=== PATIENT | female | born 2000 | race Caucasian/White ===

== ENCOUNTER 2022-09-28 14:26 | Emergency (ER) | payer MEDICAID, SELFPAY ==
[2022-09-28 14:34] VITALS: BP 147/101; PULSE 99; RESP 16; TEMP 36.6; O2SAT 98
--- NOTE | 2022-09-28 15:17 | CTR_ITS ---
PROCEDURE INFORMATION: Exam: CT Abdomen And Pelvis With Contrast Exam date and time: 09/28/2022 4:56 PM Age: 22 years old Clinical indication: Abdominal pain; Additional info: Abdominal pain, hematemesis and hematochezia TECHNIQUE: Imaging protocol: Computed tomography of the abdomen and pelvis with contrast. Radiation optimization: All CT scans at this facility use at least one of these dose optimization techniques: automated exposure control; mA and/or kV adjustment per patient size (includes targeted exams where dose is matched to clinical indication); or iterative reconstruction. Contrast material: OMNI 350; Contrast volume: 100 ml; Contrast route: INTRAVENOUS (IV); COMPARISON: CR XR acute abdomen series [id number] 05/29/2018 11:03 PM RADIATION DOSE METRICS: Total DLP (mGy-cm): 1079.33 FINDINGS: Liver: Normal. No mass. A few scattered calcifications seen in the right lobe. Gallbladder and bile ducts: Normal. No calcified stones. No ductal dilation. Pancreas: Normal. No ductal dilation. Spleen: Normal. No splenomegaly. Adrenal glands: Normal. No mass. Kidneys and ureters: Normal. No hydronephrosis. Stomach and bowel: Unremarkable. No obstruction. No mucosal thickening. New lines the descending colon and sigmoid colon are small in caliber. Appendix: No evidence of appendicitis. Intraperitoneal space: Unremarkable. No free air. No significant fluid collection. Vasculature: Unremarkable. No abdominal aortic aneurysm. Lymph nodes: Unremarkable. No enlarged lymph nodes. Urinary bladder: Unremarkable as visualized. Reproductive: Unremarkable as visualized. Bones/joints: Unremarkable. No acute fracture. Soft tissues: Unremarkable. CT/CT abdomen pelvis w con* [id number] IMPRESSION: 1. The descending and sigmoid colon are small in caliber. 2. Otherwise No acute abnormalities.
--- NOTE | 2022-09-28 15:17 | XRR_ITS ---
PROCEDURE INFORMATION: Exam: XR Chest Exam date and time: 09/28/2022 3:25 PM Age: 22 years old Clinical indication: Other: Abd; Additional info: Abdominal pain TECHNIQUE: Imaging protocol: Radiologic exam of the chest. Views: 1 view. COMPARISON: CR XR acute abdomen series [id number] 05/29/2018 11:03 PM FINDINGS: Lungs: Unremarkable. No consolidation. Pleural spaces: Unremarkable. No pleural effusion. No pneumothorax. Heart/Mediastinum: Unremarkable. No cardiomegaly. Bones/joints: Unremarkable. XR/XR chest 1V portable [id number] IMPRESSION: No acute findings.
[2022-09-28] MEDS: sodium chloride 0.9% 1,000 ML 999 ML IV (16:01)
[2022-09-28 16:02] LABS: Basophils # 0.1 10^3/uL (0.0-0.1); Basophils % 0.6 %; Eosinophils # 0.1 10^3/uL (0.0-0.8); Eosinophils % 0.6 %; Hematocrit 45.1 % (37.0-47.0); Hemoglobin 15.5 g/dL (11.5-15.3); Lymphocytes # 2.8 10^3/uL (0.8-4.8); Lymphocytes % 19.6 %; Mean Corpuscular HGB Conc 34.4 g/dL (30.0-36.0); Mean Corpuscular Hemoglobin 29.5 pg (28.0-34.0); Mean Corpuscular Volume 85.9 fl (81-99); Mean Platelet Volume 10.2 fL (7.4-10.4); Monocytes % 6.8 %; Neutrophils # 10.31 10^3/uL (1.8-7.7); Neutrophils % 72.1 %; Nucleated Red Blood Cells % 0 %; Platelet Count 409 10^3/cmm (130-400); Red Blood Count 5.25 10^6/uL (4.1-5.3); Red Cell Distribution Width 12.3 % (12.1-15.1); White Blood Count 14.3 10^3/uL (4.0-10.0)
[2022-09-28] MEDS: metoclopramide 5 mg/mL SDV 2 mL IVP (16:02)
[2022-09-28 16:06] VITALS: BP 128/84; PULSE 75; O2SAT 97
[2022-09-28 16:23] LABS: Alanine Aminotransferase 31 U/L (0-33); Albumin Level 4.9 g/dL (3.5-5.2); Alkaline Phosphatase 74 U/L (35-105); Blood Urea Nitrogen 9 mg/dL (6-20); Calcium 9.6 mg/dL (8.5-10.5); Carbon Dioxide 23 mmol/L (22-29); Chloride 101 mmol/L (98-107); Globulin 3.2 g/dL (1.3-4.6); Glomerular Filtration Rate 152.9 mL/min (90-130); Glucose 88 mg/dL (65-115); Lipase 11 U/L (13-60); Magnesium 1.9 mg/dL (1.7-2.3); Osmolality Calculated 280 mOsm/kg (285-295); Sodium 136 mmol/L (136-145); Total Bilirubin 0.8 mg/dL (0.15-1.2); Total Protein 8.1 g/dL (6.6-8.7)
[2022-09-28 16:26] LABS: Alcohol Level < 10 mg/dL (0-10); Anion Gap 16.1 (5-19); Aspartate Amino Transferase 20 U/L (0-32); Potassium 4.1 mmol/L (3.5-5.1)
[2022-09-28 16:28] LABS: Ketone (Acetest) Serum Negative (Negative)
[2022-09-28 16:30] VITALS: BP 121/77; PULSE 75; O2SAT 96
[2022-09-28 16:36] LABS: Amphetamines Screen Urine Negative (Negative); Barbiturates Screen Urine Negative (Negative); Benzodiazepines Screen Urine Negative (Negative); Cocaine Screen Urine Negative (Negative); Opiate Screen Urine Negative (Negative); PCP Screen Urine Negative (Negative); THC Screen Urine Positive (Negative)
[2022-09-28 16:37] LABS: Lactate (Lactic Acid level) 0.8 mmol/L (0.5-2.2)
[2022-09-28 16:42] LABS: Add Urine Microscopic? YES; Bilirubin Urine Neg (Negative); Blood Urine 2+ (Negative); Glucose Urine UA Norm (Normal); Ketones Urine 1+ (Negative); Leukocyte Esterase Urine Trace (Negative); Nitrate Urine Negative (Negative); Protein Urine 1+ (Negative); Urine Appearance Turbid (CLEAR); Urine Color Yellow (Yellow); Urobilinogen Urine Norm (Negative); WBC Urine 0-4 /hpf (0-5); pH Urine 5 (5-7)
[2022-09-28 16:43] LABS: Add Urine Culture? No; Amorphous Sediment Urine 4+ /hpf; Bacteria Urine 1+ /hpf
[2022-09-28 17:00] VITALS: PULSE 78; O2SAT 96
[2022-09-28] MEDS: iohexol 350 mg/mL 500 mL Btl (per mL) IV (17:07)
--- NOTE | 2022-09-28 17:29 | ED_ITS ---
HPI - Abdominal Pain General: Chief Complaint: Abdominal Pain Stated Complaint: passing blood Time Seen by Provider: 09/28/22 15:05 History of Present Illness: Patient is a 22-year-old female that presents to the emergency department with complaints of abdominal pain, nausea vomiting diarrhea. Patient reports bloody stools as well as bloody vomitus. Symptoms began about 3:00 this morning when she came home after being out drinking. Patient states that she had 3 shots and 1 wine cooler. She became extremely inebriated. She does not recall going home. She reports that she was with her friends the entire time. Significant other reports that she had a syncopal episode or seizure activity. Patient does not have a seizure history. Associated Symptoms: Denies bloating, chills, constipation, GI cramping, diarrhea, dysuria, fever(s), hematochezia, hematuria, nausea and vomiting Related Data: Date of Last Menstrual Period: 07/17/22 Review of Systems General: Reports: 10 or more systems reviewed and unremarkable except in HPI and below Const: Denies: fever(s), chills, change in appetite, change in weight, fatigue or malaise Eyes: Denies: change in vision, eye discomfort, eye discharge or eye redness ENMT: Denies: throat pain, enlarged tonsils, odynophagia, hoarseness, ear or mastoid pain, ear discharge, change in hearing, tinnitus, nasal discharge, nasal congestion, post nasal drip or sinus pain Card: Denies: chest pain, palpitations, irregular heart rhythm, edema, dyspnea on exertion, orthopnea or leg pain with exertion Resp: Denies: dyspnea, productive cough, non-productive cough, wheezing, stridor or chest congestion GI: Denies: abdominal pain, nausea, vomiting, dysphagia, diarrhea, constipation, bloating, GI cramping or hematochezia : Denies: flank pain, difficulty voiding, dysuria, urinary frequency, urinary urgency, urinary hesitancy, oliguria or hematuria Musc: Denies: neck pain, back pain, extremity pain, joint pain, joint swelling, joint redness, joint warmth or muscle weakness Skin/Breast: Denies: rash, pruritus, erythema, photosensitivity or new lesions Neuro: Denies: headache(s), numbness in extremities, weakness in extremities, sensory changes, lack of coordination, difficulty walking, frequent falls, dizziness, confusion, Slurred speech present, difficulty communicating thoughts, seizure-like activity or involuntary movements Endo: Denies: polyuria, polydipsia or tired all the time Tito/Lymph: Denies: easy bruising or easy bleeding PFSH ED PFSH: Medical History (Updated 07/02/22 @ 10:47 by Codie Miranda MD) MDD (major depressive disorder) Psychiatric care PTSD (post-traumatic stress disorder) Female Reproductive History: Date of last menstrual period: 07/17/22 Physical Exam Const: COMMON NORMALS: no acute distress, average body habitus, patient oriented x3, no limitations, healthy appearing, alert and well nourished GENERAL APPEARANCE: cooperative, comfortable and well developed; not in distress and not anxious ORIENTATION/CONSCIOUSNESS: Yes awake, Yes oriented to person, Yes oriented to place and Yes oriented to time HENMT: COMMON NORMALS: normocephalic, atraumatic, hearing grossly normal bilaterally, external ears normal, EAC's normal, TM's normal bilaterally, Normal external nose present and Normal nasal mucous membranes and turbinates present HEAD & SCALP: normal to inspection, normocephalic and atraumatic FACE & SINUS: normal facial exam and face symmetric NOSE: Normal external nose present, Normal nares present and Normal nasal mucous membranes and turbinates present GENERAL EAR: hearing not grossly impaired EXTERNAL EAR: Yes external ears normal and Yes no periauricular adenopathy EXTERNAL AUDITORY CANAL: EAC's normal TYMPANIC MEMBRANE: TM's normal bilaterally MOUTH: Normal oral and palatal mucosa present, lip normal, tongue normal and Normal salivary glands and ducts present THROAT: posterior oropharynx normal, tonsils normal and uvula midline Eye: COMMON NORMALS: Equal, round and reactive pupils present, EOMs intact bilaterally, conjunctivae normal, no scleral icterus and no papilledema GENERAL EYE: appearance normal, both eyes and all related structures ALIGNMENT: Yes alignment normal PERIORBITAL: periorbital findings normal EYELID: eyelids normal CONJUNCTIVA: Yes conjunctivae normal PUPIL: Yes Equal, round and reactive pupils present DIRECT OPHTHALMOSCOPY: Yes no papilledema Neck/C-Spine: COMMON NORMALS: full ROM, supple, no meningeal signs and no JVD GENERAL: Yes normal visual inspection CERVICAL SPINE: Yes cervical ROM normal Lymph: LYMPHATIC: no lymphadenopathy noted Chest: COMMONS NORMALS: normal inspection of the chest Breast/axilla inspection: Yes no chest deformity, asymmetry, normal contours, no nodules, masses, tenderness Resp: COMMON NORMALS: normal respiratory effort, No retractions, No use of accessory muscles and clear to auscultation bilaterally EFFORT & INSPECTION: Yes able to speak in complete sentences, Yes symmetric chest movement, No abn ormal respiratory pattern, No tachypneic and No respiratory distress AUSCULTATION: clear to auscultation bilaterally Cardio: COMMON NORMALS: no JVD, regular rate, regular rhythm and Peripheral pulses 2+ throughout RATE: regular rate RHYTHM: regular rhythm PERIPHERAL PULSES: Peripheral pulses 2+ throughout GI: COMMON NORMALS: Normal to inspection, nondistended, normoactive bowel emeli nds present and Soft to palpation INSPECTION: Yes normal to inspection AUSCULTATION: Yes normoactive bowel sounds PALPATION: Yes Soft to palpation and Yes Tenderness to palpation present (GI) Details: RLQ : COMMON NORMALS: Yes no CVA tenderness BLADDER/KIDNEY EXAM: Yes no CVA tenderness Back/Pelvis: COMMON NORMALS: no CVA tenderness, thoracic and lumbar spine normal to inspection, no thoracic nor lumbar tenderness, thoraco-lumbar ROM normal and straight leg raise negative bilaterally GENERAL BACK: No ecchymosis THORACIC SPINE/UPPER BACK: Yes normal to inspection LUMBAR SPINE/LOWER BACK: Yes normal to inspection and Yes straight leg raise negative bilaterally Extremity: COMMON NORMALS: normal to inspection, full ROM and capillary refill normal GENERAL: Yes normal exam except as noted Neuro: COMMON NORMALS: patient oriented x3 SENSORIUM/ORIENTATION: Yes alert, Yes oriented to person, Yes oriented to place and Yes oriented to time MENINGEAL SIGNS: Yes no meningeal signs Psych: COMMON NORMALS: mental status grossly normal, Normal thought process present, cooperative, normal affect, speech normal and activity/motor behavior normal SPEECH: Yes normal speech THOUGHT PROCESS: Normal thought process present Skin: COMMON NORMALS: no rashes or lesions noted, no wounds, turgor normal, no jaundice, no petechiae and no mottling GENERAL SKIN EXAM: no rashes or lesions noted and turgor normal Course Vital Signs: Vital signs: Vital Signs Temperature 97.9 F 09/28/22 14:34 Pulse Rate 99 09/28/22 14:34 Respiratory Rate 16 09/28/22 14:34 Blood Pressure 147/101 09/28/22 14:34 Pulse Oximetry 98 09/28/22 14:34 MDM - Abdominal Pain Medical Decision Making Patient was evaluated in the emergency department for complaints of abdominal pain, nausea vomiting and diarrhea. Patient reports multiple episodes of vomiting and with some of these episodes it was bloody in nature. Patient also reports a episode of bloody stools. Differential diagnoses include colitis, Crohn's, gastritis, GI bleed Patient underwent laboratory studies to include urinalysis, CBC, CMP, urine , lipase and alcohol. She also underwent chest x-ray which was unremarkable. CT abdomen pelvis with contrast was obtained and reveals At this time imaging and laboratory studies are still pending. Mark Brandon NP will assume care. I have updated him on patient's case. Lab Data 09/28/22 15:50 09/28/22 15:50 Labs/Radiology: Radiology Impressions Chest X-Ray 09/28/22 15:17 IMPRESSION: No acute findings. Laboratory Results WBC 14.3 10^3/uL (4.0-10.0) H 09/28/22 15:50 RBC 5.25 10^6/uL (4.1-5.3) 09/28/22 15:50 Hgb 15.5 g/dL (11.5-15.3) H 09/28/22 15:50 Hct 45.1 % (37.0-47.0) 09/28/22 15:50 MCV 85.9 fl (81-99) 09/28/22 15:50 MCH 29.5 pg (28.0-34.0) 09/28/22 15:50 MCHC 34.4 g/dL (30.0-36.0) 09/28/22 15:50 RDW 12.3 % (12.1-15.1) 09/28/22 15:50 Plt Count 409 10^3/cmm (130-400) H 09/28/22 15:50 MPV 10.2 fL (7.4-10.4) 09/28/22 15:50 Neut % (Auto) 72.1 % 09/28/22 15:50 Lymph % (Auto) 19.6 % 09/28/22 15:50 Latimer % (Auto) 6.8 % 09/28/22 15:50 Eos % (Auto) 0.6 % 09/28/22 15:50 Baso % (Auto) 0.6 % 09/28/22 15:50 Neut # (Auto) 10.31 10^3/uL (1.8-7.7) H 09/28/22 15:50 Lymph # (Auto) 2.8 10^3/uL (0.8-4.8) 09/28/22 15:50 Latimer # (Auto) 1.0 10^3/uL (0.2-0.9) H 09/28/22 15:50 Eos # (Auto) 0.1 10^3/uL (0.0-0.8) 09/28/22 15:50 Baso # (Auto) 0.1 10^3/uL (0.0-0.1) 09/28/22 15:50 Nucleated RBC % (auto) 0 % 09/28/22 15:50 Nucleated RBCs # 0.0 /100WBC 09/28/22 15:50 Sodium 136 mmol/L (136-145) 09/28/22 15:50 Potassium 4.1 mmol/L (3.5-5.1) 09/28/22 15:50 Chloride 101 mmol/L (98-107) 09/28/22 15:50 Carbon Dioxide 23 mmol/L (22-29) 09/28/22 15:50 Anion Gap 16.1 (5-19) 09/28/22 15:50 BUN 9 mg/dL (6-20) 09/28/22 15:50 Creatinine 0.5 mg/dL (0.5-0.9) 09/28/22 15:50 GFR Calculation 152.9 mL/min (90-130) H 09/28/22 15:50 Glucose 88 mg/dL (65-115) 09/28/22 15:50 Calculated Osmolality 280 mOsm/kg (285-295) L 09/28/22 15:50 Lactate 0.8 mmol/L (0.5-2.2) 09/28/22 15:50 Calcium 9.6 mg/dL (8.5-10.5) 09/28/22 15:50 Magnesium 1.9 mg/dL (1.7-2.3) 09/28/22 15:50 Total Bilirubin 0.8 mg/dL (0.15-1.2) 09/28/22 15:50 AST 20 U/L (0-32) 09/28/22 15:50 ALT 31 U/L (0-33) 09/28/22 15:50 Alkaline Phosphatase 74 U/L (35-105) 09/28/22 15:50 Total Protein 8.1 g/dL (6.6-8.7) 09/28/22 15:50 Albumin 4.9 g/dL (3.5-5.2) 09/28/22 15:50 Globulin 3.2 g/dL (1.3-4.6) 09/28/22 15:50 Lipase 11 U/L (13-60) L 09/28/22 15:50 Urine Color Yellow (Yellow) 09/28/22 16:00 Urine Appearance Turbid (CLEAR) A 09/28/22 16:00 Urine pH 5 (5-7) 09/28/22 16:00 Ur Specific [place] 1.030 (1.005-1.030) 09/28/22 16:00 Urine Protein 1+ (Negative) H 09/28/22 16:00 Urine Glucose (UA) Norm (Normal) 09/28/22 16:00 Urine Ketones 1+ (Negative) H 09/28/22 16:00 Urine Blood 2+ (Negative) H 09/28/22 16:00 Urine Nitrate Negative (Negative) 09/28/22 16:00 Urine Bilirubin Neg (Negative) 09/28/22 16:00 Urine Urobilinogen Norm mg/dL (Negative) 09/28/22 16:00 Ur Leukocyte Esterase Trace (Negative) H 09/28/22 16:00 Urine RBC 5-10 /hpf (0-2) H 09/28/22 16:00 Urine WBC 0-4 /hpf (0-5) H 09/28/22 16:00 Ur Squamous Epith Cells 10-15 /hpf (0-5) H 09/28/22 16:00 Amorphous Sediment 4+ /hpf 09/28/22 16:00 Urine Bacteria 1+ /hpf (NONE) H 09/28/22 16:00 Urine HCG, Qual Negative (Negative) 09/28/22 16:00 Urine Opiates Screen Negative ng/mL (Negative) 09/28/22 16:00 Ur Barbiturates Screen Negative ng/mL (Negative) 09/28/22 16:00 Ur Phencyclidine Scrn Negative ng/mL (Negative) 09/28/22 16:00 Ur Amphetamines Screen Negative ng/mL (Negative) 09/28/22 16:00 U Benzodiazepines Scrn Negative ng/mL (Negative) 09/28/22 16:00 Urine Cocaine Screen Negative ng/mL (Negative) 09/28/22 16:00 U Marijuana (THC) Screen Positive ng/mL (Negative) H 09/28/22 16:00 Ethyl Alcohol < 10 mg/dL (0-10) 09/28/22 15:50 Serum Ketones Negative (Negative) 09/28/22 15:50 Discharge Plan Discharge Condition: Stable Prescriptions: No Action prazosin 1 mg capsule 1 mg PO .qhs 30 Days Qty: 30 3RF hydroxyzine HCl 10 mg tablet 10 mg PO BID PRN (Reason: itching) 30 Days Qty: 60 3RF trazodone 50 mg tablet 50 mg PO .qhs 30 Days Qty: 30 3RF Coding Level of Care Code ED [employer] Dem[employer] for [employer]
[2022-09-28 17:30] VITALS: BP 145/91; PULSE 73; O2SAT 99
== END 2022-09-28 18:25 | disposition home or self-care (01) ==
PROVIDERS: Emergency Provider Nurse Practitioner
DX: R10.9 Unspecified abdominal pain (principal); R11.2 Nausea with vomiting, unspecified; R19.7 Diarrhea, unspecified
CPT/HCPCS: 71045; 74177; 80053; 80306; 80307; 81001; 81025; 82009; 83605; 83690; 83735; 85025; 96361; 96374; 99285; J2765; J7030; Q9967

== ENCOUNTER → 2022-10-24 12:20 | Outpatient (BNVA) | payer MEDICAID, SELFPAY | PROVIDERS: Visit Provider Obstetrics & Gynecology | DX: N92.6 Irregular menstruation, unspecified (principal) | CPT/HCPCS: 81025; 83036; 83525; 84443 ==

== ENCOUNTER → 2022-11-13 08:46 | Outpatient (BNVA) | payer MEDICAID, SELFPAY | PROVIDERS: Visit Provider Obstetrics & Gynecology | DX: N92.6 Irregular menstruation, unspecified (principal); N83.8 Other noninflammatory disorders of ovary, fallopian tube and broad ligament | CPT/HCPCS: 76830 ==

== ENCOUNTER → 2023-10-07 10:57 | Outpatient (BNVA) | payer SELFPAY | PROVIDERS: Visit Provider Registered Nurse Neonatal Intensive Care | DX: R05.9 Cough, unspecified (principal); J06.9 Acute upper respiratory infection, unspecified | CPT/HCPCS: 87400 ==

== ENCOUNTER → 2023-12-14 14:45 | Outpatient (BNVA) | payer MEDICAID, SELFPAY | PROVIDERS: Visit Provider Obstetrics & Gynecology | DX: Z01.419 Encounter for gynecological examination (general) (routine) without abnormal findings (principal) | CPT/HCPCS: 87624 ==

== ENCOUNTER 2024-03-04 18:03 | Emergency (ER) | payer MEDICAID, SELFPAY ==
[2024-03-04 18:05] VITALS: BP 149/97; PULSE 94; RESP 16; TEMP 37.1; O2SAT 98
--- NOTE | 2024-03-04 18:24 | ED_ITS ---
HPI - Eye Problem General: Chief complaint: Eye Problems Stated complaint: right eye pain Time Seen by Provider: 03/04/24 18:07 Source: patient Mode of arrival: ambulatory Limitations: no limitations History of Present Illness: Patient is a 23-year-old female presenting to the emergency department complaining of right eye swelling and itchiness for the past day or so. Patient believes she came in contact with poison audelia, as she denies using any new make- ups or coming into contact with anything specific, other than being outside. She is denying any visual changes or pain with extraocular movements. She does note that the rashes to her right periorbital region and right upper extremity. She has not taken anything for her symptoms at this time. She is denying any angioedema or oropharyngeal swelling, and has no complaints of respiratory difficulties. chief complaint: eye redness Onset (ago): day(s) Onset description: sudden Duration: constant and progressively worsening Eye Symptoms: redness and itching Severity: moderate Associated symptoms: Denies fever(s), headache(s), nausea, neck pain or vomiting Review of Systems General: Reports: 10 or more systems reviewed and unremarkable except in HPI and below Const: Denies: fever(s), chills or fatigue Eyes: Reports: other (Periorbital itching and swelling); Denies: change in vision, blurry vision, photophobia, eye discomfort, eye discharge or eye redness ENMT: Denies: throat pain, ear or mastoid pain or nasal discharge Card: Denies: chest pain, palpitations, swelling of feet/ankles or lightheadedness Resp: Denies: dyspnea, productive cough or wheezing GI: Denies: abdominal pain, nausea, vomiting, diarrhea or constipation : Denies: flank pain, difficulty voiding, dysuria or urinary frequency Musc: Denies: neck pain, back pain or joint pain Skin/Breast: Denies: rash Neuro: Denies: headache(s), numbness in extremities or weakness in extremities PFSH ED PFSH: Medical History Major depressive disorder, recurrent severe without psychotic features Insomnia PTSD (post-traumatic stress disorder) MDD (major depressive disorder) Psychiatric care Family History Grandmother Breast cancer Maternal Diabetes Grandfather Diabetes Denies family history of Colon cancer Ovarian cancer Heart disease Hypercholesteremia Hypertension Uterine cancer Thyroid disease Stroke Female Reproductive History: Date of last menstrual period: 01/31/24 Physical Exam Const: COMMON NORMALS: no acute distress, patient oriented x3 and no limitations GENERAL APPEARANCE: cooperative, comfortable and well developed ORIENTATION/CONSCIOUSNESS: Yes awake, Yes oriented to person, Yes oriented to place and Yes oriented to time HENMT: COMMON NORMALS: normocephalic, atraumatic and hearing grossly normal bilaterally HEAD & SCALP: normocephalic and atraumatic Eye: COMMON NORMALS: Equal, round and reactive pupils present, EOMs intact bilaterally and conjunctivae normal CONJUNCTIVA: Yes conjunctivae normal PUPIL: Yes Equal, round and reactive pupils present Neck/C-Spine: COMMON NORMALS: full ROM, supple and no JVD Resp: COMMON NORMALS: normal respiratory effort, No retractions, No use of accessory muscles and clear to auscultation bilaterally AUSCULTATION: clear to auscultation bilaterally Cardio: COMMON NORMALS: no JVD, regular rate, regular rhythm, No clicks present (Cardio), No murmurs present (Cardio) and No rub (Cardio) RATE: regular rate RHYTHM: regular rhythm Extremity: COMMON NORMALS: normal to inspection, full ROM and capillary refill normal Neuro: COMMON NORMALS: patient oriented x3, moves all extremities, no focal motor deficits and no sensory deficits noted SENSORIUM/ORIENTATION: Yes oriented to person, Yes oriented to place and Yes oriented to time Psych: COMMON NORMALS: mental status grossly normal and Normal thought process present THOUGHT PROCESS: Normal thought process present Skin: NARRATIVE SKIN EXAM: Erythematous rash noted to patient's right periorbital region and right wrist. Areas appear pruritic and there is no active bleeding or drainage. Course Vital Signs: Vital signs: Vital Signs Temperature 98.7 F 03/04/24 18:05 Pulse Rate 94 03/04/24 18:05 Respiratory Rate 16 03/04/24 18:05 Blood Pressure 149/97 03/04/24 18:05 Pulse Oximetry 98 03/04/24 18:05 MDM - Eye Problem Medical Decision Making Patient has clinical signs and symptoms of a contact dermatitis, most likely poison audelia due to patient's history. She does note history of allergies to poison audelia and that this appears similar. She has no red flag symptoms as sociated with any potential orbital or preseptal cellulitis, as she has no pain with extraocular movements or visual changes at all. Her vitals are unremarkable and she is afebrile. She will be given a shot of Decadron here in the emergency department and sent home with topical triamcinolone. Strict return precautions were given. No radiology studies performed this visit Discharge Plan Discharge Patient Disposition: Home Clinical Impression: Poison audelia dermatitis Condition: Stable Prescriptions: New triamcinolone acetonide 0.1 % ointment 1 applic topical TID Qty: 15 0RF No Action letrozole 2.5 mg tablet 2.5 mg PO DAILY 5 Days Qty: 10 1RF Rx Instructions: take 2 tablets by mouth between days 5 and 9 of mensural cycle escitalopram oxalate 20 mg tablet 20 mg PO DAILY Qty: 30 1RF Rx Instructions: Take one tablet by mouth every morning; stop other doses of this medication Discharge Orders: Discharge ED (Routine); Ordered 03/04/24 Ordered By: Luis Carlos Solitario Discharge Diet: Usual diet Discharge Activity: Increase activity as tolerated Patient Instructions: Contact Dermatitis (ED), Poison Audelia (ED) Activity Restrictions/Additional Instructions: Topical triamcinolone as directed. Avoid any future contact. If you develop any visual changes, worsening of swelling/pain, or any other concerning symptoms, please return for reevaluation. Otherwise you may follow-up with primary care as needed. 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
[2024-03-04] MEDS: dexamethasone 10 mg/mL INJ IM (18:28)
[2024-03-04 18:31] VITALS: PULSE 97; O2SAT 96
[2024-03-04 19:24] VITALS: PULSE 96; RESP 16; O2SAT 97
== END 2024-03-04 19:04 | disposition home or self-care (01) ==
PROVIDERS: Emergency Provider Physician Assistant
DX: L23.7 Allergic contact dermatitis due to plants, except food (principal)
CPT/HCPCS: 96372; 99284; J1100

== ENCOUNTER → 2024-03-07 09:00 | Outpatient (BNVA) | payer MEDICAID, SELFPAY | PROVIDERS: Visit Provider Obstetrics & Gynecology | DX: Z31.9 Encounter for procreative management, unspecified (principal) | CPT/HCPCS: 84702 ==

== ENCOUNTER → 2024-03-10 11:36 | Outpatient (BNVA) | payer MEDICAID, SELFPAY | PROVIDERS: Visit Provider Obstetrics & Gynecology | DX: E28.2 Polycystic ovarian syndrome (principal); N92.6 Irregular menstruation, unspecified | CPT/HCPCS: 84702 ==

== ENCOUNTER 2024-03-25 12:37 | Emergency (ER) | payer MEDICAID, SELFPAY ==
[2024-03-25 12:45] VITALS: BP 140/87; PULSE 94; RESP 16; TEMP 37.1; O2SAT 96; BMI 40.7
--- NOTE | 2024-03-25 13:02 | USR_ITS ---
PROCEDURE INFORMATION: Exam: US Pelvis, Transvaginal, Non-Obstetric Exam date and time: 03/25/2024 2:06 PM Age: 23 years old Clinical indication: Pelvic pain; Additional info: of unknown location with vb TECHNIQUE: Imaging protocol: Real-time transvaginal pelvic (non-obstetric) ultrasound with image documentation. Transvaginal imaging was used for better evaluation of the endometrium, adnexa, and/or cervix. COMPARISON: US transvaginal [id number] 11/13/2022 8:52 AM FINDINGS: Uterus is anteverted and unremarkable in overall size measuring 7.8 x 4.1 x 4.3 cm. There are no uterine masses there are textural heterogeneity within the myometrium. There is no intrauterine visible at this time. Endometrial lining measures 1 cm in maximum thickness. There is a small amount of complex fluid in the lower portion of the endometrial cavity and minimal amount of fluid within the cervix. Cervix is otherwise unremarkable. Right ovary measures 3.9 x 3.0 x 2.4 cm with 1.9 x 1.7 cm anechoic cyst present internally likely representing a simple functional cyst. Normal Doppler flow. No adnexal mass. Left ovary is unremarkable measuring 3.2 x 2.4 x 1.8 cm. Normal Doppler flow. No adnexal mass. No free fluid seen in the cul-de-sac. US/US transvaginal [id number] IMPRESSION: 1. No evidence of intrauterine at this time. Consider less than 5 week IUP, complete miscarriage or occult ectopic . Continued follow-up and correlation with serial HCG is recommended. 2. Small amount of complex fluid within the lower endometrial cavity, nonspecific. 3. Small functional cyst right ovary.
--- NOTE | 2024-03-25 13:08 | W.ED.GENADLT ---
HPI - General Adult General: Chief complaint: Vaginal Bleeding Stated complaint: 7/8 wks , spotting, cramping Time Seen by Provider: 03/25/24 13:00 History of Present Illness: HPI: at approximately 7 weeks gestational age by last menstrual period, pending new OB appointment on Thursday. Experiencing vaginal spotting that has worsened over last 24 hours. First occurred yesterday and is now worsening today, had intercourse last night. No urinary symptoms, abdominal cramping worse than usual, vomiting, or GI symptoms. Has history of PCOS. ROS: 10 systems reviewed and otherwise unremarkable except for those noted in HPI. Physical Exam: Triage vital signs reviewed General: No acute distress, cooperative and comfortable HEENT: Normocephalic, atraumatic, external ears normal, moist mucous membranes, PERRLA. Chest: Normal inspection, equal rise and fall, no edema Respiratory: Normal respiratory effort, no atypical respiratory sounds GI: Non-tender to palpation, non-distended, Extremities: Moving all 4 extremities easily, no deformities Neuro: No meningeal signs, motor function in the room without abnormalities, sensation intact Skin: No rashes, bruising, warm, dry Procedures: N/A MDM: Considered diagnoses include miscarriage of varying timelines, of unknown location, ectopic , other intra-abdominal surgical or infectious pathology. Vital signs nonactionable. Based on history, exam, and any results no emergent condition identified. Pelvic ultrasound conducted and hCG testing conducted. No intrauterine identified and hCG in the low 300s of undetermined significance. Advise follow-up with OB as scheduled on Thursday for repeat laboratory testing and imaging as indicated. Patient educated about reasons to return to the emergency department including signs of ongoing or changing condition. Advised to make an appointment with primary care or to establish care with a primary care provider to review all results from this encounter. This note was written with assistance of dictation software. Contact author for any clarification of typos. Casa Jeronimo MD [facility] ED PFS: Medical History Major depressive disorder, recurrent severe without psychotic features Insomnia PTSD (post-traumatic stress disorder) MDD (major depressive disorder) Psychiatric care Family History Grandmother Breast cancer Maternal Diabetes Grandfather Diabetes Denies family history of Colon cancer Ovarian cancer Heart disease Hypercholesteremia Hypertension Uterine cancer Thyroid disease Stroke Female Reproductive History: Date of last menstrual period: 01/31/24 Course Vital Signs: Vital signs: Vital Signs Temperature 98.7 F 03/25/24 12:45 Pulse Rate 63 03/25/24 15:00 Respiratory Rate 16 03/25/24 12:45 Blood Pressure 131/85 03/25/24 15:00 Pulse Oximetry 100 03/25/24 15:00 Oxygen Delivery Me thod Room Air 03/25/24 15:00 MDM - General Adult Medical Decision Making see [facility] Lab Data 03/25/24 13:29 03/25/24 13:29 Radiology Impressions Transvaginal US 03/25/24 13:02 IMPRESSION: 1. No evidence of intrauterine at this time. Consider less than 5 week IUP, complete miscarriage or occult ectopic . Continued follow-up and correlation with serial HCG is recommended. 2. Small amount of complex fluid within the lower endometrial cavity, nonspecific. 3. Small functional cyst right ovary. Laboratory Results WBC 10.04 10^3/uL (3.29-11.43) 03/25/24 13:29 RBC 4.84 10^6/uL (3.85-5.65) 03/25/24 13:29 Hgb 14.10 g/dL (11.27-16.99) 03/25/24 13:29 Hct 40.2 % (36-47) 03/25/24 13:29 MCV 83.1 fl (85-98) L 03/25/24 13:29 MCH 29.1 pg (27-33) 03/25/24 13:29 MCHC 35.1 g/dL (30-55) 03/25/24 13:29 RDW 12.5 % (12.1-15.1) 03/25/24 13:29 Plt Count 350 10^3/cmm (157-399) 03/25/24 13:29 MPV 9.6 fL (7.4-10.4) 03/25/24 13:29 Neut % (Auto) 68.2 % 03/25/24 13:29 Lymph % (Auto) 22.4 % 03/25/24 13:29 [place] % (Auto) 5.7 % 03/25/24 13:29 Eos % (Auto) 2.7 % 03/25/24 13:29 Baso % (Auto) 0.7 % 03/25/24 13:29 Neut # (Auto) 6.85 10^3/uL (1.8-7.7) 03/25/24 13:29 Lymph # (Auto) 2.3 10^3/uL (0.8-4.8) 03/25/24 13:29 [place] # (Auto) 0.6 10^3/uL (0.2-0.9) 03/25/24 13:29 Eos # (Auto) 0.3 10^3/uL (0.0-0.8) 03/25/24 13:29 Baso # (Auto) 0.1 10^3/uL (0.0-0.1) 03/25/24 13:29 Nucleated RBC % (auto) 0 % 03/25/24 13: Nucleated RBCs # 0.0 /100WBC 03/25/24 13:29 Sodium 140 mmol/L (136-145) 03/25/24 13:29 Potassium 3.8 mmol/L (3.5-5.1) 03/25/24 13:29 Chloride 107 mmol/L (98-107) 03/25/24 13:29 Carbon Dioxide 21 mmol/L (22-29) L 03/25/24 13:29 Anion Gap 15.8 (5-19) 03/25/24 13:29 BUN 8 mg/dL (6-20) 03/25/24 13:29 Creatinine 0.5 mg/dL (0.5-0.9) 03/25/24 13:29 GFR Calculation 151.6 mL/min (90-130) H 03/25/24 13:29 Glucose 97 mg/dL (65-115) 03/25/24 13:29 Calculated Osmolality 288 mOsm/kg (285-295) 03/25/24 13:29 Calcium 8.8 mg/dL (8.5-10.5) 03/25/24 13:29 Ser , Semi-Qnt 373.60 mIU/mL 03/25/24 13:29 Urine Color Red (Yellow) A 03/25/24 13:05 Urine Appearance Cloudy (CLEAR) A 03/25/24 13:05 Urine pH 5 (5-7) 03/25/24 13:05 Ur Specific [place] 1.025 (1.005-1.030) 03/25/24 13:05 Urine Protein 3+ (Negative) H 03/25/24 13:05 Urine Glucose (UA) Norm (Normal) 03/25/24 13:05 Urine Ketones 1+ (Negative) H 03/25/24 13:05 Urine Blood 3+ (Negative) H 03/25/24 13:05 Urine Nitrate Negative (Negative) 03/25/24 13:05 Urine Bilirubin Neg (Negative) 03/25/24 13:05 Urine Urobilinogen Neg mg/dL (Negative) 03/25/24 13:05 Ur Leukocyte Esterase Trace (Negative) H 03/25/24 13:05 Urine RBC Too numerous to cnt /hpf (0-2) H 03/25/24 13:05 Urine WBC 40-55 /hpf (0-5) H 03/25/24 13:05 Ur Squamous Epith Cells 5-10 /hpf (0-5) H 03/25/24 13:05 Amorphous Sediment Not Reportable 03/25/24 13:05 Urine Bacteria 1+ /hpf (NONE) H 03/25/24 13:05 Urine Mucus Trace /hpf 03/25/24 13:05 All radiology interpretation(s) finalized by discharge Discharge Plan Discharge Patient Disposition: Home Clinical Impression: Vaginal bleeding Condition: Stable Prescriptions: No Action letrozole 2.5 mg tablet 2.5 mg PO DAILY 5 Days Qty: 10 1RF Rx Instructions: take 2 tablets by mouth between days 5 and 9 of mensural cycle escitalopram oxalate 20 mg tablet 20 mg PO DAILY Qty: 30 1RF Rx Instructions: Take one tablet by mouth every morning; stop other doses of this medication triamcinolone acetonide 0.1 % ointment 1 applic topical TID Qty: 15 0RF Discharge Orders: Discharge ED (Routine); Ordered 03/25/24 Ordered By: Casa Jeronimo Discharge Diet: Advance as tolerated Discharge Activity: Resume usual activity Patient Instructions: Opioid Safety, Pain Management 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
[2024-03-25 13:36] VITALS: BP 152/96; PULSE 75; O2SAT 97
[2024-03-25 13:39] LABS: Basophils # 0.1 10^3/uL (0.0-0.1); Basophils % 0.7 %; Eosinophils # 0.3 10^3/uL (0.0-0.8); Eosinophils % 2.7 %; Hematocrit 40.2 % (36-47); Lymphocytes # 2.3 10^3/uL (0.8-4.8); Lymphocytes % 22.4 %; Mean Corpuscular HGB Conc 35.1 g/dL (30-55); Mean Corpuscular Hemoglobin 29.1 pg (27-33); Mean Corpuscular Volume 83.1 fl (85-98); Mean Platelet Volume 9.6 fL (7.4-10.4); Monocytes # 0.6 10^3/uL (0.2-0.9); Monocytes % 5.7 %; Neutrophils # 6.85 10^3/uL (1.8-7.7); Neutrophils % 68.2 %; Nucleated Red Blood Cells % 0 %; Platelet Count 350 10^3/cmm (157-399); Red Blood Count 4.84 10^6/uL (3.85-5.65); Red Cell Distribution Width 12.5 % (12.1-15.1); White Blood Count 10.04 10^3/uL (3.29-11.43)
[2024-03-25 14:06] LABS: Anion Gap 15.8 (5-19); Blood Urea Nitrogen 8 mg/dL (6-20); Calcium 8.8 mg/dL (8.5-10.5); Carbon Dioxide 21 mmol/L (22-29); Chloride 107 mmol/L (98-107); Creatinine Clr Calc Pharmacy 230.4326; Glomerular Filtration Rate 151.6 mL/min (90-130); Glucose 97 mg/dL (65-115); Osmolality Calculated 288 mOsm/kg (285-295); Potassium 3.8 mmol/L (3.5-5.1); Sodium 140 mmol/L (136-145)
[2024-03-25 14:18] LABS: Protein Urine 3+ (Negative); Specific Gravity, Urine 1.025 (1.005-1.030); Urine Appearance Cloudy (CLEAR); Urine Color Red (Yellow); pH Urine 5 (5-7)
[2024-03-25 14:19] LABS: Add Urine Microscopic? YES; Bilirubin Urine Neg (Negative); Blood Urine 3+ (Negative); Glucose Urine UA Norm (Normal); Ketones Urine 1+ (Negative); Leukocyte Esterase Urine Trace (Negative); Nitrate Urine Negative (Negative); Urobilinogen Urine Neg (Negative)
[2024-03-25 14:20] LABS: Bacteria Urine 1+ /hpf; RBC Urine TOO NUMEROUS TO CNT /hpf (0-2); WBC Urine 40-55 /hpf (0-5)
[2024-03-25 14:21] LABS: Add Urine Culture? Yes; Mucus Urine TRACE /hpf
[2024-03-25 15:00] VITALS: BP 131/85; PULSE 63; O2SAT 100
[2024-03-25 15:36] VITALS: PULSE 64; O2SAT 97
== END 2024-03-25 15:37 | disposition home or self-care (01) ==
PROVIDERS: Emergency Provider General Practice
DX: O20.9 Hemorrhage in early pregnancy, unspecified (principal); Z3A.01 Less than 8 weeks gestation of pregnancy
CPT/HCPCS: 36415; 76830; 80048; 81001; 84702; 85025; 87086; 99284

== ENCOUNTER → 2024-03-28 13:22 | Outpatient (BNVA) | payer MEDICAID, SELFPAY | PROVIDERS: Visit Provider Obstetrics & Gynecology | DX: O03.9 Complete or unspecified spontaneous abortion without complication (principal) | CPT/HCPCS: 84702; 86850; 86900 ==

== ENCOUNTER → 2024-05-24 13:20 | Outpatient (BNVA) | payer MEDICAID, SELFPAY | PROVIDERS: Visit Provider Obstetrics & Gynecology | DX: O03.9 Complete or unspecified spontaneous abortion without complication (principal) | CPT/HCPCS: 81025 ==

== ENCOUNTER 2024-06-23 16:03 | Inpatient (IN) | payer OTHER, MEDICAID, SELFPAY ==
[2024-06-23 16:12] VITALS: BP 134/89; PULSE 86; RESP 16; TEMP 37.1; O2SAT 97; BMI 40.4
--- NOTE | 2024-06-23 16:26 | ED.C_ITS ---
HPI - Psych 2 General: Chief Complaint: Psychiatric Symptoms Stated Complaint: mental health Time Seen by Provider: 06/23/24 16:15 Source: patient Mode of arrival: ambulatory Limitations: no limitations History of Present Illness: Patient is a 24-year-old female who presents the emergency department via privately owned vehicle for mental health evaluation today. She states that she needs an adjustment on her medications, currently is only on 20 mg of Lexapro daily. She notes that for the past month and a half, she has had increasing thoughts of agitation and anger, and thinks this may have stemmed from a prior miscarriage. She also notes that the last time she was hospitalized here in the neuropsychiatric unit, it was after a miscarriage. She states that she is not currently having any thoughts of hurt herself or self-harm, but does feel angry in the sense that she could hurt someone, though believes she would never bring herself to do so. No plan to hurt anyone specifically. Does have past medical history of self-harm by cutting, as well as past medical history of suicidal ideations before. Otherwise she does not report any other new stress in her life or potential exacerbating factors. She is noting that she has been having some visual hallucinations, none at this time and no auditory hallucinations with command. MD complaint: other (Mental health evaluation) Onset (ago): month(s) Duration: constant and getting worse History of same: Yes Associated symptoms: Reports visual hallucinations and depression; Deny auditory hallucinations or suicidal ideation Related Data Previous Rx's Medication Instructions Recorded escitalopram oxalate 20 mg tablet 20 mg PO DAILY #30 tabs 04/04/24 letrozole 2.5 mg tablet 2.5 mg PO DAILY 5 days #10 tabs 05/24/24 medroxyprogesterone 10 mg tablet 10 mg PO DAILY #5 tabs 05/24/24 (Provera) Allergies Allergy/AdvReac Type Severity Reaction Status Date / Time No Known Allergies Allergy Verified 06/21/24 09:23 Review of Systems 2 General: Reports: 10 or more systems reviewed and unremarkable except in HPI and below Const: Denies: fever(s), chills or fatigue Eyes: Denies: change in vision ENMT: Denies: throat pain, ear or mastoid pain or nasal discharge Card: Denies: chest pain, palpitations, swelling of feet/ankles or lightheadedness Resp: Denies: dyspnea, productive cough or wheezing GI: Denies: abdominal pain, nausea, vomiting, diarrhea or constipation : Denies: flank pain, difficulty voiding, dysuria or urinary frequency Musc: Denies: neck pain, back pain or joint pain Skin/Breast: Denies: rash Neuro: Denies: headache(s), numbness in extremities or weakness in extremities Psych: Reports: anxiety, depression, irritability, visual hallucinations and other (Mental health evaluation); Denies: auditory hallucinations, tactile hallucinations or suicidal ideation PFSH ED 2 PFSH: Medical History Major depressive disorder, recurrent severe without psychotic features Insomnia PTSD (post-traumatic stress disorder) MDD (major depressive disorder) Psychiatric care Family History Grandmother Breast cancer Maternal Diabetes Grandfather Diabetes Denies family history of Colon cancer Ovarian cancer Heart disease Hypercholesteremia Hypertension Uterine cancer Thyroid disease Stroke Social History Smoking and tobacco/nicotine status: current every day tobacco/nicotine user Female Reproductive History: Date of last menstrual period: 06/06/24 Physical Exam 2 Const: COMMON NORMALS: no acute distress, patient oriented x3 and no limitations GENERAL APPEARANCE: cooperative and well developed O RIENTATION/CONSCIOUSNESS: Yes awake, Yes oriented to person, Yes oriented to place and Yes oriented to time HENMT: COMMON NORMALS: normocephalic, atraumatic and hearing grossly normal bilaterally HEAD & SCALP: normocephalic and atraumatic Eye: COMMON NORMALS: Equal, round and reactive pupils present, EOMs intact bilaterally and conjunctivae normal CONJUNCTIVA: Yes conjunctivae normal P UPIL: Yes Equal, round and reactive pupils present Neck/C-Spine: COMMON NORMALS: full ROM, supple and no JVD Resp: COMMON NORMALS: normal respiratory effort, No retractions, No use of accessory muscles and clear to auscultation bilaterally AUSCULTATION: clear to auscultation bilaterally Cardio: COMMON NORMALS: no JVD, regular rate, regular rhythm, No clicks present (Cardio), No murmurs present (Cardio) and No rub (Cardio) RATE: r egular rate RHYTHM: regular rhythm Extremity: COMMON NORMALS: full ROM and capillary refill normal Neuro: COMMON NORMALS: patient oriented x3, CN's II-XII intact bilaterally, moves all extremities, no focal motor deficits and no sensory deficits noted SENSORIUM/ORIENTATION: Yes oriented to person, Yes oriented to place and Yes oriented to time Psych: COMMON NORMALS: mental status grossly normal, Normal thought process present and cooperative APPEARANCE: Yes grossly normal ATTITUDE: Yes calm ACTIVITY/MOTOR BEHAVIOR: Yes Avoids eye contact (attititude/behavior) S PEECH: Yes soft MOOD & AFFECT: Yes depressed mood and Yes anxious THOUGHT PROCESS: Normal thought process present THOUGHT CONTENT: No Suicidality present, No Homicidality present and Yes Hallucination(s) present visual A TTENTION/CONCENTRATION: Yes attention grossly intact MEMORY/COGNITION: Yes memory grossly intact INSIGHT: Good insight present (Psych) Skin: NARRATIVE SKIN EXAM: Scattered wounds to her extremities and chest, indicating past self-mutilation Course 2 Vital Signs: Vital signs: Vital Signs Temperature 98.7 F 06/23/24 16:12 Pulse Rate 86 06/23/24 16:12 Respiratory Rate 16 06/23/24 16:12 Blood Pressure 134/89 06/23/24 16:12 Pulse Oximetry 97 06/23/24 16:12 Oxygen Delivery Me thod Room Air 06/23/24 16:12 MDM - Psych Medical Decision Making Patient is cleared medically and accepted to the neuropsychiatric unit by Dr. Abdul for further evaluation. Family updated. Dr. Hillman putting in admit orders at this time. Lab Data 06/23/24 17:08 06/23/24 17:08 Laboratory Results WBC 9.26 10^3/uL (3.29-11.43) 06/23/24 17:08 RBC 5.25 10^6/uL (3.85-5.65) 06/23/24 17:08 Hgb 15.10 g/dL (11.27-16.99) 06/23/24 17:08 Hct 43.3 % (36-47) 06/23/24 17:08 MCV 82.5 fl (85-98) L 06/23/24 17:08 MCH 28.8 pg (27-33) 06/23/24 17:08 MCHC 34.9 g/dL (30-55) 06/23/24 17:08 RDW 12.0 % (12.1-15.1) L 06/23/24 17:08 Plt Count 397 10^3/cmm (157-399) 06/23/24 17:08 MPV 10.3 fL (7.4-10.4) 06/23/24 17:08 Neut % (Auto) 58.7 % 06/23/24 17:08 Lymph % (Auto) 30.9 % 06/23/24 17:08 [place] % (Auto) 7.9 % 06/23/24 17:08 Eos % (Auto) 1.6 % 06/23/24 17:08 Baso % (Auto) 0.8 % 06/23/24 17:08 Neut # (Auto) 5.44 10^3/uL (1.8-7.7) 06/23/24 17:08 Lymph # (Auto) 2.9 10^3/uL (0.8-4.8) 06/23/24 17:08 [place] # (Auto) 0.7 10^3/uL (0.2-0.9) 06/23/24 17:08 Eos # (Auto) 0.2 10^3/uL (0.0-0.8) 06/23/24 17:08 Baso # (Auto) 0.1 10^3/uL (0.0-0.1) 06/23/24 17:08 Nucleated RBC % (auto) 0 % 06/23/24 17:08 Nucleated RBCs # 0.0 /100WBC 06/23/24 17:08 Sodium 141 mmol/L (136-145) 06/23/24 17:08 Potassium 4.1 mmol/L (3.5-5.1) 06/23/24 17:08 Chloride 108 mmol/L (98-107) H 06/23/24 17:08 Carbon Dioxide 21 mmol/L (22-29) L 06/23/24 17:08 Anion Gap 16.1 (5-19) 06/23/24 17:08 BUN 13 mg/dL (6-20) 06/23/24 17:08 Creatinine 0.6 mg/dL (0.5-0.9) 06/23/24 17:08 GFR Calculation 121.8 mL/min (90-130) 06/23/24 17:08 Glucose 99 mg/dL (65-115) 06/23/24 17:08 Calculated Osmolality 292 mOsm/kg (285-295) 06/23/24 17:08 Calcium 9.6 mg/dL (8.5-10.5) 06/23/24 17:08 Total Bilirubin 1.4 mg/dL (0.15-1.2) H 06/23/24 17:08 AST 17 U/L (0-32) 06/23/24 17:08 ALT 20 U/L (0-33) 06/23/24 17:08 Alkaline Phosphatase 72 U/L (35-105) 06/23/24 17:08 Total Protein 7.9 g/dL (6.6-8.7) 06/23/24 17:08 Albumin 4.7 g/dL (3.5-5.2) 06/23/24 17:08 Globulin 3.2 g/dL (1.3-4.6) 06/23/24 17:08 HCG, Qual Negative (Negative) 06/23/24 17:08 Salicylates < 0.3 mg/dL (3-10) L 06/23/24 17:08 Urine Opiates Screen Negative ng/mL (Negative) 06/23/24 16:10 Acetaminophen < 5.0 ug/mL (10-30) L 06/23/24 17:08 Ur Barbiturates Screen Negative ng/mL (Negative) 06/23/24 16:10 Ur Phencyclidine Scrn Negative ng/mL (Negative) 06/23/24 16:10 Ur Amphetamines Screen Negative ng/mL (Negative) 06/23/24 16:10 U Benzodiazepines Scrn Negative ng/mL (Negative) 06/23/24 16:10 Urine Cocaine Screen Negative ng/mL (Negative) 06/23/24 16:10 U Marijuana (THC) Screen Positive ng/mL (Negative) H 06/23/24 16:10 Ethyl Alcohol < 10 mg/dL (0-10) 06/23/24 17:08 No radiology studies performed this visit Discharge Plan Discharge Condition: Stable Prescriptions: No Action escitalopram oxalate 20 mg tablet 20 mg PO DAILY Qty: 30 1RF Rx Instructions: Take one tablet by mouth every morning letrozole 2.5 mg tablet 2.5 mg PO DAILY 5 Days Qty: 10 5RF Rx Instructions: take 2 tablets by mouth between days 5 and 9 of menstrual cycle medroxyprogesterone [Provera] 10 mg tablet 10 mg PO DAILY Qty: 5 5RF 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
[2024-06-23 17:20] LABS: Basophils # 0.1 10^3/uL (0.0-0.1); Basophils % 0.8 %; Eosinophils # 0.2 10^3/uL (0.0-0.8); Eosinophils % 1.6 %; Hematocrit 43.3 % (36-47); Lymphocytes # 2.9 10^3/uL (0.8-4.8); Lymphocytes % 30.9 %; Mean Corpuscular HGB Conc 34.9 g/dL (30-55); Mean Corpuscular Hemoglobin 28.8 pg (27-33); Mean Corpuscular Volume 82.5 fl (85-98); Mean Platelet Volume 10.3 fL (7.4-10.4); Monocytes # 0.7 10^3/uL (0.2-0.9); Monocytes % 7.9 %; Neutrophils # 5.44 10^3/uL (1.8-7.7); Neutrophils % 58.7 %; Nucleated Red Blood Cells % 0 %; Platelet Count 397 10^3/cmm (157-399); Red Blood Count 5.25 10^6/uL (3.85-5.65); White Blood Count 9.26 10^3/uL (3.29-11.43)
[2024-06-23 17:28] LABS: Amphetamines Screen Urine Negative (Negative); Barbiturates Screen Urine Negative (Negative); Benzodiazepines Screen Urine Negative (Negative); Cocaine Screen Urine Negative (Negative); Opiate Screen Urine Negative (Negative); PCP Screen Urine Negative (Negative); THC Screen Urine Positive (Negative)
[2024-06-23 17:33] LABS: Alanine Aminotransferase 20 U/L (0-33); Albumin Level 4.7 g/dL (3.5-5.2); Alkaline Phosphatase 72 U/L (35-105); Anion Gap 16.1 (5-19); Aspartate Amino Transferase 17 U/L (0-32); Blood Urea Nitrogen 13 mg/dL (6-20); Calcium 9.6 mg/dL (8.5-10.5); Carbon Dioxide 21 mmol/L (22-29); Chloride 108 mmol/L (98-107); Creatinine Clr Calc Pharmacy 189.5508; Globulin 3.2 g/dL (1.3-4.6); Glomerular Filtration Rate 121.8 mL/min (90-130); Glucose 99 mg/dL (65-115); Osmolality Calculated 292 mOsm/kg (285-295); Potassium 4.1 mmol/L (3.5-5.1); Sodium 141 mmol/L (136-145); Total Bilirubin 1.4 mg/dL (0.15-1.2); Total Protein 7.9 g/dL (6.6-8.7)
[2024-06-23 17:34] LABS: Acetaminophen < 5.0 ug/mL (10-30); Alcohol Level < 10 mg/dL (0-10); Salicylate < 0.3 mg/dL (3-10)
[2024-06-23 17:36] LABS: HCG, Serum Qual Negative (Negative)
[2024-06-23 18:42] VITALS: BP 114/79; PULSE 92; O2SAT 95
[2024-06-23] MEDS: LORazepam 1 mg Tablet PO (21:00)
[2024-06-23 21:52] VITALS: BP 121/83; PULSE 71; O2SAT 97
[2024-06-23 22:24] VITALS: BP 113/60; PULSE 75; RESP 18; TEMP 37.3; O2SAT 97
[2024-06-23 22:25] VITALS: BP 121/83; PULSE 71; O2SAT 97
[2024-06-23 22:27] VITALS: BMI 40.4
[2024-06-24] MEDS: trazodone 50 mg Tablet PO ×2 (00:06→21:16)
[2024-06-24 06:00] VITALS: BP 116/76; PULSE 72; RESP 16; TEMP 36.7; O2SAT 98
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
[2024-06-24] MEDS: escitalopram 10 mg Tablet 20 MG PO (11:07)
[2024-06-24 14:00] VITALS: BP 131/78; PULSE 85; RESP 16; TEMP 36.6; O2SAT 95
[2024-06-24] MEDS: hyDROXYzine 25 mg Capsule 50 MG PO (19:35)
[2024-06-24 20:47] VITALS: BP 120/75; PULSE 72; RESP 18; TEMP 37; O2SAT 98
[2024-06-24] MEDS: escitalopram 10 mg Tablet PO (20:54)
[2024-06-25 06:00] VITALS: BP 127/76; PULSE 79; RESP 16; TEMP 36.5; O2SAT 98
--- NOTE | 2024-06-25 08:06 | P.NPUDS_ITS ---
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 -7.7) 06/23/24 17:08 Lymph # (Auto) 2.9 10^3/uL (0.8- 4.8) 06/23/24 17:08 [place] # (Auto) 0.7 10^3/uL (0.2- 0.9) 06/23/24 17:08 Eos # (Auto) 0.2 10^3/uL (0.0- 0.8) 06/23/24 17:08 Baso # (Auto) 0.1 10^3/uL (0.0- 0.1) 06/23/24 17:08 Nucleated RBC % (a uto) 0 % 06/23/24 17:08 Nucleated RBCs # 0.0 /100WBC 06/23/24 17:08 Sodium 141 mmol/L (136-1 45) 06/23/24 17:08 Potassium 4.1 mmol/L (3.5-5 .1) 06/23/24 17:08 Chloride 108 mmol/L (98-10 7) H 06/23/24 17:08 Carbon Dioxide 21 mmol/L (22-29) L 06/23/24 17:08 Anion Gap 16.1 (5-19) 06/23/24 17:08 BUN 13 mg/dL (6-20) 06/23/24 17:08 Creatinine 0.6 mg/dL (0.5-0. 9) 06/23/24 17:08 GFR Calculation 121.8 mL/min (90- 130) 06/23/24 17:08 Glucose 99 mg/dL (65-115) 06/23/24 17:08 Calculated Osmolal ity 292 mOsm/kg (285- 295) 06/23/24 17:08 Calcium 9.6 mg/dL (8.5-10 .5) 06/23/24 17:08 Total Bilirubin 1.4 mg/dL (0.15-1 .2) H 06/23/24 17:08 AST 17 U/L (0-32) 06/23/24 17:08 ALT 20 U/L (0-33) 06/23/24 17:08 Alkaline Phosphata se 72 U/L (35-105) 06/23/24 17:08 Total Protein 7.9 g/dL (6.6-8.7 ) 06/23/24 17:08 Albumin 4.7 g/dL (3.5-5.2 ) 06/23/24 17:08 Globulin 3.2 g/dL (1.3-4.6 ) 06/23/24 17:08 HCG, Qual Negative (Negati ve) 06/23/24 17:08 Salicylates < 0.3 mg/dL (3-10 ) L 06/23/24 17:08 Urine Opiates Scre en Negative ng/mL (N egative) 06/23/24 16:10 Acetaminophen < 5.0 ug/mL (10-3 0) L 06/23/24 17:08 Ur Barbiturates Sc reen Negative ng/mL (N egative) 06/23/24 16:10 Ur Phencyclidine S crn Negative ng/mL (N egative) 06/23/24 16:10 Ur Amphetamines Sc reen Negative ng/mL (N egative) 06/23/24 16:10 U Benzodiazepines Scrn Negative ng/mL (N egative) 06/23/24 16:10 Urine Cocaine Scre en Negative ng/mL (N egative) 06/23/24 16:10 U Marijuana (THC) Screen Positive ng/mL (N egative) H 06/23/24 16:10 Ethyl Alcohol < 10 mg/dL (0-10) 06/23/24 17:08 Vitals: Last Vital Signs Temp 97.7 F 06/25/24 06:00 Pulse 79 06/25/24 06:00 Resp 16 06/25/24 06:00 BP 127/76 06/25/24 06:00 Pulse Ox 98 06/25/24 06:00 O2 Del Method Room Air 06/25/24 06:00 Discharge Plan Discharge Patient Disposition: Home Condition: Stable Prescriptions: New escitalopram oxalate 10 mg Tablet 30 mg PO DAILY 30 Days Qty: 90 1RF trazodone 50 mg Tablet 50 mg PO BEDTIME PRN (Reason: Sleep) 30 Days Qty: 30 1RF hydroxyzine pamoate 25 mg Capsule 50 mg PO Q6H PRN (Reason: Anxiety) 30 Days Qty: 120 1RF Discontinued escitalopram oxalate 20 mg tablet 20 mg PO DAILY Qty: 30 1RF Rx Instructions: Take one tablet by mouth every morning Discharge Orders: Discharge Order (Routine); Ordered 06/25/24 Ordered By: Celestine Abdul Referrals: Vannessa Rios APRN [Nurse Practitioner] - 07/04/24 8:45 am Discharge Diet: Regular Discharge Activity: Resume usual activity Patient Instructions: Opioid Safety Discharge Attestations NPU Time Spent in Discharge Care*: less than 30 min Specific Discharge Activities: Specific discharge activities: educating patient, discussing with director of casework department/social workers/dc planners, documenting/other paperwork and evaluating patient/reviewing data Coding Level of Care Code Acute Code for Chg Fwd Diagnoses PTSD (post-traumatic stress disorder) F43.10 Generalized anxiety disorder F41.1 Major depressive disorder, recurrent severe without psychotic features F33.2 PCOS (polycystic ovarian syndrome) E28.2 Cannabis use disorder F12.90
[2024-06-25 08:29] VITALS: BP 127/76; PULSE 79; RESP 16; TEMP 36.5; O2SAT 98
[2024-06-25] MEDS: escitalopram 10 mg Tablet 30 MG PO (08:49)
== END 2024-06-25 09:20 | disposition home or self-care (01) | DRG 885 ==
LOC: ER 17:27 → NP 19:13
PROVIDERS: Admitting Provider Psychiatry & Neurology Psychiatry; Emergency Provider Physician Assistant; Visit Provider Psychiatry & Neurology Psychiatry
DX: F33.2 Major depressive disorder, recurrent severe without psychotic features (principal); Z68.41 Body mass index [BMI] 40.0-44.9, adult; G47.00 Insomnia, unspecified; F43.10 Post-traumatic stress disorder, unspecified; F41.1 Generalized anxiety disorder; F17.290 Nicotine dependence, other tobacco product, uncomplicated; F12.90 Cannabis use, unspecified, uncomplicated; E66.01 Morbid (severe) obesity due to excess calories; E28.2 Polycystic ovarian syndrome
CPT/HCPCS: 36415; 80053; 80306; 80307; 84703; 85025; 97150; 97165; 99285

== ENCOUNTER → 2024-08-22 11:28 | Outpatient (BNVA) | payer MEDICAID, SELFPAY | PROVIDERS: Visit Provider Nurse Practitioner Women's Health | DX: Z32.01 Encounter for pregnancy test, result positive (principal); N91.2 Amenorrhea, unspecified | CPT/HCPCS: 81025; 84702; 86850; 86900 ==

== ENCOUNTER → 2024-08-24 09:18 | Outpatient (BNVA) | payer MEDICAID, SELFPAY | PROVIDERS: Visit Provider Nurse Practitioner Women's Health | DX: N91.2 Amenorrhea, unspecified (principal); Z32.01 Encounter for pregnancy test, result positive | CPT/HCPCS: 76817 ==

== ENCOUNTER → 2024-08-31 09:34 | Outpatient (BNVA) | payer MEDICAID, SELFPAY | PROVIDERS: Visit Provider Nurse Practitioner Women's Health | DX: Z34.90 Encounter for supervision of normal pregnancy, unspecified, unspecified trimester (principal) | CPT/HCPCS: 76817 ==

== ENCOUNTER → 2024-09-29 11:13 | Outpatient (BNVA) | payer OTHER, MEDICAID, SELFPAY | PROVIDERS: Visit Provider Nurse Practitioner Women's Health | DX: Z34.90 Encounter for supervision of normal pregnancy, unspecified, unspecified trimester (principal) | CPT/HCPCS: 80307; 84315; 84443; 85025; 86592; 86762; 86803; 86850; 86900; 87086; 87340; 87491; 87591; 87661; 87806 ==

== ENCOUNTER → 2024-10-29 12:14 | Outpatient (BNVA) | payer MEDICAID, SELFPAY | PROVIDERS: Visit Provider Registered Nurse Neonatal Intensive Care | DX: R39.9 Unspecified symptoms and signs involving the genitourinary system (principal) | CPT/HCPCS: 81000 ==

== ENCOUNTER → 2024-11-09 08:53 | Outpatient (BNVA) | payer MEDICAID, SELFPAY | PROVIDERS: Visit Provider Nurse Practitioner Women's Health | DX: Z34.90 Encounter for supervision of normal pregnancy, unspecified, unspecified trimester (principal) | CPT/HCPCS: 81000; 82950 ==

== ENCOUNTER → 2024-12-07 09:43 | Outpatient (BNVA) | payer SELFPAY | PROVIDERS: Visit Provider Obstetrics & Gynecology | DX: Z36.9 Encounter for antenatal screening, unspecified (principal) | CPT/HCPCS: 76805 ==

== ENCOUNTER → 2024-12-19 07:49 | Outpatient (BNVA) | payer MEDICAID, SELFPAY | PROVIDERS: Visit Provider Obstetrics & Gynecology | DX: Z34.90 Encounter for supervision of normal pregnancy, unspecified, unspecified trimester (principal) | CPT/HCPCS: 84315 ==

== ENCOUNTER → 2025-01-05 10:57 | Outpatient (BNVA) | payer MEDICAID, SELFPAY | PROVIDERS: Visit Provider Nurse Practitioner Women's Health | DX: Z34.90 Encounter for supervision of normal pregnancy, unspecified, unspecified trimester (principal) | CPT/HCPCS: 81000 ==

== ENCOUNTER 2025-01-07 12:54 | Outpatient (CLI) | payer MEDICAID, SELFPAY ==
[2025-01-07] VITALS (7 sets, daily range): BP systolic 121–165; BP diastolic 58–105; PULSE 89–112; BMI 43.8
--- NOTE | 2025-01-07 13:35 | USR_ITS ---
PROCEDURE INFORMATION: Exam: US Biophysical Profile Without Non-Stress Test Exam date and time: 01/07/2025 2:06 PM Age: 24 years old Clinical indication: Other: Decreased movement; TECHNIQUE: Imaging protocol: US biophysical profile without non-stress testing. COMPARISON: US OB >= 14 weeks fetus [id number] 12/07/2024 9:47 AM FINDINGS: Gestation: Breech presentation of the single intrauterine . heart rate: 153 bpm Placenta: Posterior placenta. BIOPHYSICAL PROFILE: breathing (BPP): 2 out of 2. gross body movement (BPP): 2 out of 2. tone (BPP): 2 out of 2. Amniotic fluid (BPP): 2 out of 2. MATERNAL ANATOMY: Cervix: Cervical length measures 3.5 cm. US/US OB BPP wo NST [id number] IMPRESSION: Normal biophysical profile.
== END 2025-01-07 14:53 | disposition home or self-care (01) ==
LOC: OPOB 12:57 → OBGYN 12:58
PROVIDERS: Visit Provider Obstetrics & Gynecology
DX: O36.8190 Decreased fetal movements, unspecified trimester, not applicable or unspecified (principal); Z3A.00 Weeks of gestation of pregnancy not specified
CPT/HCPCS: 76819; 99211

== ENCOUNTER → 2025-02-02 12:17 | Outpatient (BNVA) | payer MEDICAID, SELFPAY | PROVIDERS: Visit Provider Obstetrics & Gynecology | DX: Z34.90 Encounter for supervision of normal pregnancy, unspecified, unspecified trimester (principal) | CPT/HCPCS: 82950; 84315; 85025 ==

== ENCOUNTER → 2025-02-09 08:10 | Outpatient (BNVA) | payer MEDICAID, SELFPAY | PROVIDERS: Visit Provider Obstetrics & Gynecology | DX: Z34.90 Encounter for supervision of normal pregnancy, unspecified, unspecified trimester (principal) | CPT/HCPCS: 82951; 82952 ==

== ENCOUNTER → 2025-02-20 11:22 | Outpatient (BNVA) | payer MEDICAID, SELFPAY | PROVIDERS: Visit Provider Obstetrics & Gynecology | DX: Z34.90 Encounter for supervision of normal pregnancy, unspecified, unspecified trimester (principal) | CPT/HCPCS: 84315 ==

== ENCOUNTER → 2025-03-06 08:56 | Outpatient (BNVA) | payer MEDICAID, SELFPAY | PROVIDERS: Visit Provider Nurse Practitioner Women's Health | DX: Z34.90 Encounter for supervision of normal pregnancy, unspecified, unspecified trimester (principal) | CPT/HCPCS: 84315 ==

== ENCOUNTER 2025-03-07 12:18 | Outpatient (CLI) | payer MEDICAID, SELFPAY ==
[2025-03-07] VITALS (11 sets, daily range): BP systolic 124–152; BP diastolic 76–97; PULSE 90–123; BMI 47.0
[2025-03-07 13:09] LABS: Bilirubin Urine Negative (Negative); Blood Urine Negative (Negative); Glucose Urine UA Negative (Normal); Ketones Urine Trace (Negative); Leukocyte Esterase Urine 1+ (Negative); Nitrate Urine Negative (Negative); Protein Urine Trace (Negative); Specific Gravity, Urine 1.021 (1.005-1.030); Urine Appearance Cloudy (CLEAR); Urine Color Dark Yellow (Yellow)
[2025-03-07 13:12] LABS: Add Urine Microscopic? YES; Bacteria Urine 2+ /hpf; RBC Urine 0-2 /hpf (0-2); Squamous Epithelial Cell Urine 21-50 /hpf (0-5); WBC Urine 21-50 /hpf (0-5)
[2025-03-07 13:29] LABS: Add Urine Culture? Yes
[2025-03-07] MEDS: lactated ringers 1,000 ML 999 ML IV (13:55)
[2025-03-07] MEDS: ceFAZolin 1,000 mg SDV 1000 MG IVP (14:02)
== END 2025-03-07 15:10 | disposition home or self-care (01) ==
LOC: OPOB 12:25 → OBGYN 12:26
PROVIDERS: Visit Provider Obstetrics & Gynecology
DX: O26.899 Other specified pregnancy related conditions, unspecified trimester (principal); Z3A.00 Weeks of gestation of pregnancy not specified; M54.9 Dorsalgia, unspecified
CPT/HCPCS: 59025; 81001; 87086; 96374; 99211; J0690; J7120

== ENCOUNTER → 2025-03-21 10:29 | Outpatient (BNVA) | payer MEDICAID, SELFPAY | PROVIDERS: Visit Provider Nurse Practitioner Women's Health | DX: O26.893 Other specified pregnancy related conditions, third trimester (principal); Z3A.34 34 weeks gestation of pregnancy | CPT/HCPCS: 76816; 84315 ==

== ENCOUNTER → 2025-03-22 11:13 | Outpatient (BNVA) | payer MEDICAID, SELFPAY | PROVIDERS: Visit Provider Nurse Practitioner Women's Health | DX: Z34.90 Encounter for supervision of normal pregnancy, unspecified, unspecified trimester (principal) | CPT/HCPCS: 76819 ==

== ENCOUNTER → 2025-03-28 11:12 | Outpatient (BNVA) | payer MEDICAID, SELFPAY | PROVIDERS: Visit Provider Nurse Practitioner Women's Health | DX: O26.893 Other specified pregnancy related conditions, third trimester (principal); Z3A.35 35 weeks gestation of pregnancy | CPT/HCPCS: 76819 ==

== ENCOUNTER → 2025-04-03 14:40 | Outpatient (BNVA) | payer MEDICAID, SELFPAY | PROVIDERS: Visit Provider Nurse Practitioner Women's Health | DX: O26.893 Other specified pregnancy related conditions, third trimester (principal); Z3A.36 36 weeks gestation of pregnancy | CPT/HCPCS: 76819; 84315; 87081 ==

== ENCOUNTER 2025-04-06 04:40 | Inpatient (IN) | payer MEDICAID, SELFPAY ==
[2025-04-06] VITALS (92 sets, daily range): BP systolic 120–191; BP diastolic 69–117; PULSE 75–114; RESP 16–18; TEMP 36.1–36.3; O2SAT 97–99; BMI 50.7
[2025-04-06] MEDS: NIFEdipine ER (24 hr) 30 mg Tablet PO (04:56)
[2025-04-06 04:57] LABS: Hematocrit 34.5 % (36-47); Hemoglobin 11.30 g/dL (11.27-16.99); Mean Corpuscular HGB Conc 32.8 g/dL (30-55); Mean Corpuscular Hemoglobin 27.3 pg (27-33); Mean Corpuscular Volume 83.3 fl (85-98); Nucleated Red Blood Cells % 0 %; Platelet Count 332 10^3/cmm (157-399); Red Blood Count 4.14 10^6/uL (3.85-5.65); White Blood Count 12.18 10^3/uL (3.29-11.43)
[2025-04-06] MEDS: magnesium sulfate premix 20 GM/500 ML BAG IV ×2 (04:57→15:02)
[2025-04-06] MEDS: magnesium sulfate premix 4 GM/100 ML PREMIX IV (04:57)
--- NOTE | 2025-04-06 05:05 | P.HP_ITS ---
Providers/Chief Complaint 2 Admitting Physician: Inder King MD Primary VACUUM COOKER OPERATOR: Inder King MD Chief Complaint: increased blood pressure, cramping HPI VACUUM COOKER OPERATOR History of Present Illness Aby Bae is a 24 year old female SA1 EDC April 26, 2025 at 37 w 1 d no complications presented to L&D c/o headache and elevated BPs at home + active movements no abdominal pain, vaginal bleeding, fluid leakage Present Details : 1 Para: 0 Labs Rubella: Immune RPR: Negative GBS: Negative Medications/Allergies Home Medications ?Medication ?Instructions ?Recorded ?Confirmed ?Last Taken ?Type uvqyxaml-mhl-Gp-FA 1 mg 1 tab PO DAILY 04/06/25 04/05/25 History tablet Allergies Allergy/AdvReac Type Severity Reaction Status Date / Time No Known Allergies Allergy Verified 04/06/25 04:50 PFSH VACUUM COOKER OPERATOR 2 PFSH: Medical History (Updated 04/06/25 @ 15:03 by Inder King MD) Major depressive disorder, recurrent severe without psychotic features Insomnia PTSD (post-traumatic stress disorder) MDD (major depressive disorder) Psychiatric care Family History Grandmother Breast cancer Maternal Diabetes Grandfather Diabetes Denies family history of Colon cancer Ovarian cancer Heart disease Hypercholesteremia Hypertension Uterine cancer Thyroid disease Stroke Social History Smoking and tobacco/nicotine status: former use of tobacco/nicotine History History History 2 2 Term 0 0 Miscarriages/Ectopic 1 Living Children 0 Care JENNIFER Calculator 2 Estimated Delivery Date Method Current WG Current Estimate 04/26/25 Ultrasound #2 37w 1d Other Estimates 04/11/25 LMP (Uncertain) 39w 2d 04/20/25 Ultrasound #1 38w 0d Specific Issues/Plans * * DEPRESSION AND ANXIETY: not currently taking any medication for this, initial EPDS: 7 * PCOS: early 1 hr gct WNL * NAUSEA AND VOMITING: taking reglan as needed * RESTLESS LEG: vistaril sent * PUPPPS RASH: hives noted on abdomen, vistaril and steriod cream sent to treat Vitals/I&O/Wt Last Vital Signs Temp 97.2 F L 04/06/25 12:01 Pulse 98 04/06/25 14:46 BP 174/104 04/06/25 14:46 O2 Del Method Room Air 04/06/25 13:04 04/05/25 04/06/25 04/06/25 22:59 06:59 14:59 Output Total 135 / 135 1375 / 1375 Balance -135 / -135 -1375 / -1375 Weight last 48 hrs Weight 324 lb Weight 324 lb Physical Exam 2 Narrative: Weight 324 lbs; 5'7 BPs 145 / 102; 184 / 98; 165 / 101 general comfortable, awake, alert Lungs: clear Cor: RRR Abd: soft, nontender FH 38 cm , cephalic cervix: 2 cm / 50% / -2 Ext: 2+ edema Urinary Catheter Management: Maldonado: Cath Placed During This Visit: yes Reason for Continuing Indwelling Catheter: Accurate Measurement of Urinary Output in Critically Ill Patients Urinary Catheter Date of Insertion: 04/06/25 Urinary Catheter Time of Insertion: 05:00 Data 04/06/25 04:25 Results Labs OB ([facility]): 2 Obstetrics US 03/21/25 Obstetrics US/Biophysical Profile Blood Type O Positive Today Antibody Screen Negative Today Hct, (36-47) 34.5 % L Today Hgb, (11.27-16.99) 11.30 g/dL Today Rho(D) Type Rh positive Today Plt Count, (157-399) 332 10^3/cmm Today Hep Bs Antigen, (Nonreactive) Non-reactive 09/29/24 Hepatitis C Antibody, (Nonreactive) Non-reactive 09/14 03/08 Rubella IgG Antibody, (0.0-10.0) 83.1 IU/mL H 5 RPR, (Nonreactive) Nonreactive 09/29/24 HIV 1&2 Ab & HIV 1 Ag, (Non-Reactiv) Non-reactive TSH, (0.27-4.20) 3.46 uIU/mL 09/29/24 Glucose 1 Hr 50 gm, (85-140) 160 mg/dL H 02/02/25 Gest Glucose Tolerance mg/dL 02/09/25 Ser , Semi-Qnt 3651.00 mIU/mL 08/22/24 HCG, Qual, (Negative) Positive H 08/22/24 Urine Opiates Screen, (Negative) Negative ng/mL Today Ur Barbiturates Screen, (Negative) Negative ng/mL Today Ur Phencyclidine Scrn, (Negative) Negative ng/mL Today Ur Amphetamines Screen, (Negative) Negative ng/mL Today U Benzodiazepines Scrn, (Negative) Negative ng/mL Today Urine Cocaine Screen, (Negative) Negative ng/mL Today U Marijuana (THC) Screen, (Negative) Negative ng/mL Tod ay Micro Urine Specimen 03/07/25 Pap Smear Interpret See note 12/14/23 A&P Assessment and plan 1. : 37 w 1 d fetus reassuring 2. Preeclampsia: significantly elevated BPs admit start MgSO4 for seizure prophylaxis procardia for BP control start induction of labor labor management PDMP PDMP Reviewed: Not Reviewed Attestations 2 Medical Necessity Statement*: patient at 37 w 1 d with pre-eclampsia Coding Level of Care Code Acute Code for Chg Fwd Diagnoses Z34.90 Preeclampsia O14.90
[2025-04-06 10:03] LABS: PCP Screen Urine Negative (Negative)
--- NOTE | 2025-04-06 11:12 | PC.NURSE ---
Clonus +2 noted on exam
[2025-04-06] MEDS: oxytocin 30 UNIT/500 ML BAG IV (15:07)
[2025-04-06] MEDS: fentaNYL 50 mcg/mL INJ 2mL IVP (17:22)
[2025-04-06] MEDS: ondansetron 2 mg/ML SDV 2 mL 4 MG IVP (17:23)
[2025-04-06 19:00] LABS: Hematocrit 33.5 % (36-47); Hemoglobin 11.50 g/dL (11.27-16.99); Mean Corpuscular HGB Conc 34.3 g/dL (30-55); Mean Corpuscular Hemoglobin 28.5 pg (27-33); Mean Corpuscular Volume 82.9 fl (85-98); Nucleated Red Blood Cells % 0 %; Platelet Count 307 10^3/cmm (157-399); Red Blood Count 4.04 10^6/uL (3.85-5.65); White Blood Count 10.63 10^3/uL (3.29-11.43)
[2025-04-06 19:04] LABS: Glucose Urine UA Negative (Normal); Nitrate Urine Negative (Negative); Specific Gravity, Urine 1.020 (1.005-1.030)
[2025-04-06 19:09] LABS: Add Urine Microscopic? YES
[2025-04-06 19:22] LABS: Alanine Aminotransferase 10 U/L (0-33); Albumin Level 3.4 g/dL (3.5-5.2); Alkaline Phosphatase 175 U/L (35-105); Anion Gap 18.9 (5-19); Aspartate Amino Transferase 12 U/L (0-32); Blood Urea Nitrogen 7 mg/dL (6-20); Calcium 8.8 mg/dL (8.5-10.5); Carbon Dioxide 20 mmol/L (22-29); Chloride 102 mmol/L (98-107); Creatinine Clr Calc Pharmacy 259.9759; Globulin 3.3 g/dL (1.3-4.6); Glucose 100 mg/dL (65-115); Osmolality Calculated 282 mOsm/kg (285-295); Potassium 3.9 mmol/L (3.5-5.1); Sodium 137 mmol/L (136-145); Total Protein 6.7 g/dL (6.6-8.7); Uric Acid 6.1 mg/dL (2.4-5.7)
[2025-04-06 19:27] LABS: UPRO/UCREAT Ratio 0.50 mg/mg CR
[2025-04-06] MEDS: HYDROmorphone 0.5 MG/0.5 ML INJ 0.25 MG IVP (22:19)
[2025-04-07] VITALS (111 sets, daily range): BP systolic 110–189; BP diastolic 56–129; PULSE 68–109; TEMP 35.7–36.9; O2SAT 98–100
[2025-04-07] MEDS: oxytocin 30 UNIT/500 ML BAG IV (00:08)
[2025-04-07] MEDS: magnesium sulfate premix 20 GM/500 ML BAG IV ×3 (00:14→20:18)
[2025-04-07] MEDS: ondansetron 2 mg/ML SDV 2 mL 4 MG IVP (01:20)
[2025-04-07] MEDS: ROPivacaine syringe 100 MG/50 ML SYRINGE 10 MG EPIDURAL ×6 (01:49→22:41)
--- NOTE | 2025-04-07 02:44 | P.ANESASSM_ITS ---
Documented by User: Aria Sykes 04/07/25 02:49 Pre-Anesthetic Assessment Height/Weight: Height 1.7 m Weight 146.964 kg Temp Pulse Resp BP Pulse Ox O2 Del Method 97.3 F L 103 H 16 142/92 98 Room Air 04/06/25 22:45 04/07/25 02:38 04/06/25 19:00 04/07/25 02:38 04/07/25 02:37 04/06/25 17:00 Preop Diagnosis: IUP Labor epidural Familial anesthetic complications: none Was Beta Hudson taken within 24 hours: Yes Was Clonidine taken within 24 hours: N/A Social No alcohol and No tobacco cannabis use Exam alert, oriented x 3 and clear to auscultation bilaterally Airway Mallampati: Class II Dentition: full History/ROS No significant history except as noted Pulmonary None reported CV/HEM Hypertension (induced for severe BP) None reported Hepatic None reported GI None reported Metabolic Morbid Obesity [facility] [place] None reported Neuropsych Anxiety and Depression Anesthetic Plan ASA status: 3 Anesthesia: Anesthesia Evaluation and Regional (specify below) Medications/Allergies Home Medications ?Medication ?Instructions ?Recorded ?Confirmed ?Last Taken ?Type rozmymxa-kbj-Uc-FA 1 mg 1 tab PO DAILY 04/06/25 04/05/25 History tablet Allergies Allergy/AdvReac Type Severity Reaction Status Date / Time No Known Allergies Allergy Verified 04/06/25 04:50 Current Medications Generic Name Dose Route Start Last Admin Trade Name Freq PRN Reason Stop Dose Admin Hydromorphone HCl 0.25 mg 04/06/25 18:46 04/06/25 22:19 Hydromorphone 0.5 Mg/0.5 Ml Inj IVP 0.25 mg Q4H PRN Administration LABOR PAIN Dextrose/Lactated Ringer's 1,000 mls @ 125 mls/hr 04/06/25 04:45 04/07/25 01:56 Dextrose 5%-Lactated Ringers IV 75 mls/hr .Q8H LORENE Administration Magnesium Sulfate 20 gm in 500 mls @ 50 mls/hr 04/06/25 04:45 04/07/25 00:14 Magnesium Sulfate Premix IV 50 mls/hr .Q10H LORENE Administration Oxytocin 30 unit in 500 mls @ 1 mls/hr 04/06/25 14:45 04/07/25 02:00 Pitocin IV 4 milliunit/min .Q24H LORENE 4 mls/hr Protocol Titration 1 MILLIUNIT/MIN Ropivacaine 100 mg in 50 mls @ 10 mls/hr 04/07/25 01:30 04/07/25 01:49 Naropin Syringe EPIDURAL 10 mls/hr .Q5H LORENE Administration Labetalol HCl 100 mg 04/06/25 21:15 04/06/25 21:21 Labetalol 200 Mg Tablet PO 100 mg Q6H LORENE Administration Ondansetron HCl 4 mg 04/06/25 04:46 04/07/25 01:20 Ondansetron 2 Mg/Ml Sdv 2 Ml IVP 4 mg Q4H PRN Administration NAUSEA AND VOMITING PFSH Anesthesia Medical History (Updated 04/06/25 @ 15:03 by Inder King MD) Major depressive disorder, recurrent severe without psychotic features Insomnia PTSD (post-traumatic stress disorder) MDD (major depressive disorder) Psychiatric care Family History Grandmother Breast cancer Maternal Diabetes Grandfather Diabetes Denies family history of Colon cancer Ovarian cancer Heart disease Hypercholesteremia Hypertension Uterine cancer Thyroid disease Stroke Social History Smoking and tobacco/nicotine status: former use of tobacco/nicotine Female Reproductive History : 1 Data Anesthesia 04/06/25 18:30 04/06/25 18:30 Short CBC 04/06/25 04/06/25 Range/Units 04:25 18:30 WBC 12.18 H 10.63 (3.29-11.43) 10^3/uL Hgb 11.30 11.50 (11.27-16.99) g/dL Hct 34.5 L 33.5 L (36-47) % MCV 83.3 L 82.9 L (85-98) fl Plt Count 332 307 (157-399) 10^3/cmm Neut % (Auto) 70.2 74.7 % Neut # (Auto) 8.55 H 7.94 H (1.8-7.7) 10^3/uL BMP 04/06/25 18:30 Sodium 137 Potassium 3.9 Chloride 102 Carbon Dioxide 20 L BUN 7 Creatinine 0.5 Glucose 100 Calcium 8.8 Liver Function 04/06/25 Range/Units 18:30 Total Bilirubin 0.6 (0.15-1.2) mg/dL AST 12 (0-32) U/L ALT 10 (0-33) U/L Alkaline Phosphatase 175 H (35-105) U/L Albumin 3.4 L (3.5-5.2) g/dL Urine 04/06/25 Range/Units 18:15 Urine Color [place] A (Yellow) Urine Appearance Cloudy A (CLEAR) Urine pH 5.5 (5-7) Ur Specific [place] 1.020 (1.005-1.030) Urine Protein 1+ A (Negative) Urine Glucose (UA) Negative (Normal) Urine Ketones Negative (Negative) Urine Nitrate Negative (Negative) Urine Bilirubin Negative (Negative) Ur Leukocyte Esterase Trace A (Negative) Urine RBC >100 H (0-2) /hpf Urine WBC 6-10 (0-5) /hpf Blood Bank 04/06/25 04:25 Blood Type O Positive Rho(D) Type Rh positive Antibody Screen Negative Anesthesia Procedures Epidural Time Out Performed: Yes Consents Signed: Procedure Consent Consent: requested by attending/covering physician, from patient, risks and benefits reviewed and patient agrees to proceed Lumbar Level: L3-L4 Epidural procedure: sterile prep of area, 1% lidocaine to numb the area, 18 g needle, negative for paresthesia passed, neg for paresthesia, test dose given, 1.5% xylocaine 1:200k epi, 0.2% Ropivacaine bolus ml (5), placed PCEA, no systemic response, sterile dressing applied, L.U.D. no apparent complications and 0.2% Ropiavacaine @ mls/hr (10) Additional Comments: DARIANA 7cm, catheter easily threaded to 6 cm in the space. VS monitored throughout and remained stable throughout. Pt educated on [employer]ESS[employer] and reports adequate pain relief. Documented by User: Norm Cobian DO 04/07/25 15:01 Medications/Allergies Home Medications ?Medication ?Instructions ?Recorded ?Confirmed ?Last Taken ?Type chiumuii-rfz-Hk-FA 1 mg 1 tab PO DAILY 04/06/25 04/05/25 History tablet Allergies Allergy/AdvReac Type Severity Reaction Status Date / Time No Known Allergies Allergy Verified 04/06/25 04:50 [facility] Anesthesia Medical History (Updated 04/06/25 @ 15:03 by Inder King MD) Major depressive disorder, recurrent severe without psychotic features Insomnia PTSD (post-traumatic stress disorder) MDD (major depressive disorder) Psychiatric care Family History Grandmother Breast cancer Maternal Diabetes Grandfather Diabetes Denies family history of Colon cancer Ovarian cancer Heart disease Hypercholesteremia Hypertension Uterine cancer Thyroid disease Stroke Social History Smoking and tobacco/nicotine status: former use of tobacco/nicotine Data Anesthesia 04/06/25 18:30 04/06/25 18:30 Anesthesia Procedures Epidural Additional Comments: DARIANA 7cm, catheter easily threaded to 6 cm in the space. VS monitored throughout and remained stable throughout. Pt educated on [employer]OM[employer]ESS[employer] and reports adequate pain relief. I was called at 1430 for patient having increased labor pain. Epidural catheter was pulled back to 14 cm to the skin. 100 micrograms fentanyl and 5 cc of 1% lidocaine were injected in the epidural space. Patient responded well
[2025-04-07] MEDS: NIFEdipine ER (24 hr) 30 mg Tablet PO (08:53)
--- NOTE | 2025-04-07 15:47 | PM.OBGYPN ---
[employer] Subjective Subjective: Interval history: Resting in bed stronger contractions/has epidural Labor: Pain Control: tolerating well and epidural Effacement (%): 2 Station: -2 Amniotic Membrane Status: Ruptured Monitor Mode: External Contraction Pattern: Occasional Contraction Intensity: Moderate Status: Category I Vitals/I&O/Wt Last Vital Signs Temp 96.8 F L 04/07/25 07:42 Pulse 97 04/07/25 15:32 Resp 16 04/06/25 19:00 BP 130/87 04/07/25 15:32 Pulse Ox 98 04/07/25 03:27 O2 Del Method Room Air 04/06/25 17:00 04/07/25 04/07/25 04/07/25 06:59 14:59 22:59 Intake Total 1132.334 / 2947.417 1160.600 / 1160.600 Output Total 665 / 3245 1660 / 1660 300 / 1960 Balance 467.334 / -297.583 -499.400 / -499.400 -300 / -799.400 Weight last 48 hrs Weight 324 lb Weight 324 lb Physical Exam Resp: COMMON NORMALS: normal respiratory effort Cardio: COMMON NORMALS: regular rate and regular rhythm RATE: regular rate RHYTHM: regular rhythm GI: COMMON NORMALS: non-tender Urinary Catheter Management: Maldonado: Cath Placed During This Visit: yes Reason for Continuing Indwelling Catheter: Accurate Measurement of Urinary Output in Critically Ill Patients Urinary Catheter Date of Insertion: 04/06/25 Urinary Catheter Time of Insertion: 05:00 Data 04/06/25 18:30 04/06/25 18:30 A&P Assessment and plan 1. 37 weeks gestation of : 37 w 1 d fetus reassuring 2. Pre-eclampsia in third trimester: significantly elevated BPs now controlled Continue MgSO4 for seizure prophylaxis procardia with labetalol for BP control Continue induction of labor labor management Plan: Patient stable with progression of labor induction, reassuring monitoring. Continue induction with Oxytocin, antihypertensive meds and monitoring. PDMP PDMP Reviewed: Not Reviewed Attestations Medical Necessity Statement*: In summary, in-patient admission and treatment is medically necessary to effectively address the patient and baby's health condition and improve their overall well-being. Coding Level of Care Code Acute Code for Chg Fwd Diagnoses 37 weeks gestation of Z3A.37 Weeks of gestation: 37 weeks Pre-eclampsia in third trimester O14.93 Trimester: third trimester
[2025-04-08] VITALS (40 sets, daily range): BP systolic 115–154; BP diastolic 56–92; PULSE 81–114; RESP 16; TEMP 35.7–37.3
[2025-04-08] MEDS: oxytocin 30 UNIT/500 ML BAG 600 UNIT IV (01:19)
--- NOTE | 2025-04-08 01:35 | PM.DELIVERY ---
Delivery Note: Date of delivery: April 08, 2025 Pre-delivery diagnoses: 37 w 1 d preeclampsia induction of labor Post-delivery diagnoses: 37 w 1 d preeclampsia induction of labor vaginal delivery repair of second-degree perineal laceration Procedure: induction of labor vaginal delivery repair of second-degree perineal laceration Op report anesthesia: Epidural Delivering Physician: Inder King MD Estimated blood loss (mL): 500 Findings: , vigorous infant Direct OP Cord gases obtained Normal placenta and cord No episiotomy Second-degree perineal laceration repaired EBL 500 cc No complications Pre-Delivery Course: normal labor course fetus reassuring throughout Delivery: vaginal Post-Delivery Status: good History History History 2 Term 0 0 Miscarriages/Ectopic 1 Living Children 0 A&P Assessment and plan 1. Status post vaginal delivery: 2. Preeclampsia: PDMP PDMP Reviewed: Not Reviewed Coding Level of Care Code Acute Code for Chg Fwd Diagnoses Status post vaginal delivery Preeclampsia O14.90
[2025-04-08] MEDS: magnesium sulfate premix 20 GM/500 ML BAG IV ×2 (06:19→22:33)
[2025-04-08] MEDS: NIFEdipine ER (24 hr) 30 mg Tablet PO (09:54)
[2025-04-08] MEDS: PRENATAL VIT NO.130/IRON/FOLIC 1 EACH TABLET PO (09:55)
[2025-04-08 16:25] LABS: Hematocrit 27.8 % (36-47); Hemoglobin 9.30 g/dL (11.27-16.99); Mean Corpuscular HGB Conc 33.5 g/dL (30-55); Mean Corpuscular Hemoglobin 27.9 pg (27-33); Mean Corpuscular Volume 83.5 fl (85-98); Platelet Count 307 10^3/cmm (157-399); Red Blood Count 3.33 10^6/uL (3.85-5.65); White Blood Count 18.55 10^3/uL (3.29-11.43)
--- NOTE | 2025-04-08 18:07 | ANE.PACU2 ---
Inpatient post-anesthesia follow up: Airway intact: Yes Vital signs: Temperature 98.2 F Pulse Rate 96 Respiratory Rate 17 Blood Pressure 137/99 Pulse Oximetry 98 Oxygen Delivery Me thod Room Air Oxygen Flow Rate Fraction of Inspir ed Oxygen Hydration adequate: Yes Nausea and vomiting: No Pain level: 1 Mental status: Baseline Epidural Start/End: Epidural Start Date: 04/07/25 Epidural Start Time: 02:00 Epidural End Date: 04/08/25 Epidural End Time: 03:09
[2025-04-09] VITALS (10 sets, daily range): BP systolic 112–141; BP diastolic 58–99; PULSE 73–96; RESP 17; TEMP 36.8; O2SAT 98
[2025-04-09] MEDS: PRENATAL VIT NO.130/IRON/FOLIC 1 EACH TABLET PO (09:30)
[2025-04-09] MEDS: NIFEdipine ER (24 hr) 30 mg Tablet PO (09:31)
--- NOTE | 2025-04-09 14:53 | PM.OBGYPN ---
[employer] OFFICER Subjective Subjective: Interval history: No c/o No headache, dizziness, weakness, chest pain, palpitation No abdominal pain, vaginal bleeding No perineal pain Eating, ambulating well Caring for without any difficulties Labor: Effacement (%): 2 Station: +2 Amniotic Membrane Status: Ruptured Monitor Mode: External Contraction Pattern: Irregular Contraction Intensity: Moderate Uterine Tone Measurement: 0 Status: Category I Vitals/I&O/Wt Last Vital Signs Temp 98.2 F 04/09/25 13:30 Pulse 96 04/09/25 13:33 Resp 17 04/09/25 13:30 BP 137/99 04/09/25 13:33 Pulse Ox 98 04/09/25 13:30 O2 Del Method Room Air 04/06/25 17:00 04/08/25 04/09/25 04/09/25 22:59 06:59 14:59 Intake Total 1335 / 2335 1500 / 3835 Output Total 2325 / 3675 415 / 4090 Balance -990 / -1340 1085 / -255 Physical Exam Narrative: General comfortable, awake, alert BPs 136 / 90; 112 / 62; 127 / 69; 134 / 67 VS afebrile Lungs: clear Cor: RRR Abd: soft, nontender Ext: no edema Hgb 9.3 Urinary Catheter Management: Maldonado: Cath Placed During This Visit: yes Reason for Continuing Indwelling Catheter: Accurate Measurement of Urinary Output in Critically Ill Patients Urinary Catheter Date of Insertion: 04/06/25 Urinary Catheter Time of Insertion: 05:00 Data 04/08/25 15:55 04/06/25 18:30 Micro: Microbiology 04/06/25 18:15 Urine Culture - Final Urine,Clean Catch A&P Assessment and plan 1. Status post vaginal delivery: s/p doing well discharge to home today call/return if fever, chills, headache, blurry vision, nausea, vomiting, abdominal pain; vaginal bleeding or discharge; shortness of breath, chest pain, leg pains or swelling; inability to void, perineal pain or swelling; feelings of depression or mood changes; thoughts of suicide or harming others; inability to care for baby. 2. Preeclampsia: received 24-h of MgSO4 after delivery BPs WNL Plan continue Procardia 30 mg XL one po daily Return to clinic in 1-2 weeks for BP checks call/return if fever, chills, headache, blurry vision, nausea, vomiting, abdominal pain; vaginal bleeding or discharge; shortness of breath, chest pain, leg pains or swelling; inability to void, perineal pain or swelling; feelings of depression or mood changes; thoughts of suicide or harming others; inability to care for baby. 3. Anemia: Encouraged to take iron 1-2 x daily Rx sent Eat iron-rich foods PDMP PDMP Reviewed: Not Reviewed Attestations Medical Necessity Statement*: patient s/p vaginal delivery, plan to discharge to home today Coding Level of Care Code Acute Code for Chg Fwd Diagnoses Status post vaginal delivery Preeclampsia O14.90 Anemia D64.9
--- NOTE | 2025-04-09 14:55 | PM.OBGYDC ---
Discharge Providers [employer] Date of Admission: 04/06/25 04:40 Date of Discharge: 04/09/25 Attending Provider at Admission: Inder King MD Attending Provider at Discharge: Inder King MD Consults: none Primary [employer]: Inder King MD Diagnoses at Discharge Discharge Diagnosis 1. Status post vaginal delivery: Details from hospital stay: 24 y.o. [facility] April 26, 2025 at 37 w 1 d presented to L&D April 06, 2025 c/o headache and elevated BPs at home patient was diagnosed with preeclampsia started on MgSO4 induction of labor was started Procardia and Labetolol were used for BP control patient progressed to complete dilatation fetus was reassuring throughout patient had vaginal delivery of vigorous infant second degree perineal laceration was repaired , patient was continued on 24-h of MgSO4 BPs were within normal patient did well Hgb was 9.3 but patient was asymptomatic She was discharged to home on the first day with prescriptions for procardia and iron tablets plan to see patient back in 1-2 weeks 2. Preeclampsia: 3. Anemia: Reason for Visit Reason for Visit: increased blood pressure, cramping Brief History: [address] April 26, 2025 at 37 w 1 d presented to L&D April 06, 2025 c/o headache and elevated BPs at home Hospital Course Hospital Course [address] April 26, 2025 at 37 w 1 d presented to L&D April 06, 2025 c/o headache and elevated BPs at home patient was diagnosed with preeclampsia started on MgSO4 induction of labor was started Procardia and Labetolol were used for BP control patient progressed to complete dilatation fetus was reassuring throughout patient had vaginal delivery of vigorous infant second degree perineal laceration was repaired , patient was continued on 24-h of MgSO4 BPs were within normal patient did well Hgb was 9.3 but patient was asymptomatic She was discharged to home on the first day with prescriptions for procardia and iron tablets plan to see patient back in 1-2 weeks Information Peripartum Data: Delivery Method: Vaginal Laceration description: Perineal - 2nd Degree Episiotomy description: None complications: none Physical Exam Narrative: General comfortable, awake, alert BPs 136 / 90; 112 / 62; 127 / 69; 134 / 67 VS afebrile Lungs: clear Cor: RRR Abd: soft, nontender Ext: no edema Urinary Catheter Management: Maldonado: Cath Placed During This Visit: yes Reason for Continuing Indwelling Catheter: Accurate Measurement of Urinary Output in Critically Ill Patients Urinary Catheter Date of Insertion: 04/06/25 Urinary Catheter Time of Insertion: 05:00 History History History 2 Term 0 0 Miscarriages/Ectopic 1 Living Children 0 Discharge Data Studies Completed and Pending Pending at discharge Category Date Time Status High Risk PP Hemorrhage Stat Lab 04/08/25 02:39 Received Laboratory Results WBC 18.55 10^3/uL (3.29-11.43) H 04/08/25 15:55 RBC 3.33 10^6/uL (3.85-5.65) L 04/08/25 15:55 Hgb 9.30 g/dL (11.27-16.99) L 04/08/25 15:55 Hct 27.8 % (36-47) L 04/08/25 15:55 MCV 83.5 fl (85-98) L 04/08/25 15:55 MCH 27.9 pg (27-33) 04/08/25 15:55 MCHC 33.5 g/dL (30-55) 04/08/25 15:55 RDW 13.8 % (12.1-15.1) 04/08/25 15:55 Plt Count 307 10^3/cmm (157-399) 04/08/25 15:55 MPV 10.6 fL (7.4-10.4) H 04/08/25 15:55 Neut % (Auto) 74.7 % 04/06/25 18:30 Lymph % (Auto) 16.7 % 04/06/25 18:30 Andrew % (Auto) 6.2 % 04/06/25 18:30 Eos % (Auto) 1.6 % 04/06/25 18:30 Baso % (Auto) 0.3 % 04/06/25 18:30 Neut # (Auto) 7.94 10^3/uL (1.8-7.7) H 04/06/25 18:30 Lymph # (Auto) 1.8 10^3/uL (0.8-4.8) 04/06/25 18:30 Andrew # (Auto) 0.7 10^3/uL (0.2-0.9) 04/06/25 18:30 Eos # (Auto) 0.2 10^3/uL (0.0-0.8) 04/06/25 18:30 Baso # (Auto) 0.0 10^3/uL (0.0-0.1) 04/06/25 18:30 Nucleated RBC % (auto) 0 % 04/06/25 18:30 Nucleated RBCs # 0.0 /100WBC 04/06/25 18:30 Sodium 137 mmol/L (136-145) 04/06/25 18:30 Potassium 3.9 mmol/L (3.5-5.1) 04/06/25 18:30 Chloride 102 mmol/L (98-107) 04/06/25 18: Carbon Dioxide 20 mmol/L (22-29) L 04/06/25 18:30 Anion Gap 18.9 (5-19) 04/06/25 18:30 BUN 7 mg/dL (6-20) 04/06/25 18:30 Creatinine 0.5 mg/dL (0.5-0.9) 04/06/25 18:30 GFR Calculation 150.3 mL/min (90-130) H 04/06/25 18:30 Glucose 100 mg/dL (65-115) 04/06/25 18:30 Calculated Osmolality 282 mOsm/kg (285-295) L 04/06/25 18:30 Uric Acid 6.1 mg/dL (2.4-5.7) H 04/06/25 18:30 Calcium 8.8 mg/dL (8.5-10.5) 04/06/25 18:30 Total Bilirubin 0.6 mg/dL (0.15-1.2) 04/06/25 18:30 AST 12 U/L (0-32) 04/06/25 18:30 ALT 10 U/L (0-33) 04/06/25 18:30 Alkaline Phosphatase 175 U/L (35-105) H 04/06/25 18:30 Total Protein 6.7 g/dL (6.6-8.7) 04/06/25 18:30 Albumin 3.4 g/dL (3.5-5.2) L 04/06/25 18: Globulin 3.3 g/dL (1.3-4.6) 04/06/25 18:30 Urine Color Rison (Yellow) A 04/06/25 18:15 Urine Appearance Cloudy (CLEAR) A 04/06/25 18:15 Urine pH 5.5 (5-7) 04/06/25 18:15 Ur Specific [place] 1.020 (1.005-1.030) 04/06/25 18:15 Urine Protein 1+ (Negative) A 04/06/25 18:15 Urine Glucose (UA) Negative (Normal) 04/06/25 18:15 Urine Ketones Negative (Negative) 04/06/25 18:15 Urine Blood 3+ (Negative) A 04/06/25 18:15 Urine Nitrate Negative (Negative) 04/06/25 18:15 Urine Bilirubin Negative (Negative) 04/06/25 18:15 Urine Urobilinogen 1.0 mg/dL (Negative) 04/06/25 18:15 Ur Leukocyte Esterase Trace (Negative) A 04/06/25 18:15 Urine RBC >100 /hpf (0-2) H 04/06/25 18:15 Urine WBC 6-10 /hpf (0-5) 04/06/25 18:15 Ur Squamous Epith Cells 0-5 /hpf (0-5) 04/06/25 18:15 Amorphous Sediment Not Reportable 04/06/25 18:15 Urine Bacteria None seen /hpf (NONE) 04/06/25 18:15 Hyaline Casts 0.40 /lpf 04/06/25 18:15 U Random Total Protein 42 mg/dL 04/06/25 18:15 Urine Creatinine 84 mg/dL (28-217) 04/06/25 18:15 Protein/Creatinin Ratio 0.50 mg/mg CR 04/06/25 18:15 Urine Opiates Screen Negative ng/mL (Negative) 04/06/25 03:55 Ur Barbiturates Screen Negative ng/mL (Negative) 04/06/25 03:55 Ur Phencyclidine Scrn Negative ng/mL (Negative) 04/06/25 03:55 Ur Amphetamines Screen Negative ng/mL (Negative) 04/06/25 03:55 U Benzodiazepines Scrn Negative ng/mL (Negative) 04/06/25 03:55 Urine Cocaine Screen Negative ng/mL (Negative) 04/06/25 03:55 U Marijuana (THC) Screen Negative ng/mL (Negative) 04/06/25 03:55 Blood Type O Positive 04/06/25 04:25 Rho(D) Type Rh positive 04/06/25 04:25 Antibody Screen Negative 04/06/25 04:25 Procedures Performed induction of labor vaginal delivery repair of second-degree perineal laceration Vitals Last Vital Signs Temp 98.2 F 04/09/25 13:30 Pulse 96 04/09/25 13:33 Resp 17 04/09/25 13:30 BP 137/99 04/09/25 13:33 Pulse Ox 98 04/09/25 13:30 O2 Del Method Room Air 04/06/25 17:00 Results Labs OB ([facility]): Obstetrics US 03/21/25 Obstetrics US/Biophysical Profile 04/03/25 Blood Type O Positive 04/06/25 Antibody Screen Negative 04/06/25 Hct, (36-47) 27.8 % L 04/08/25 Hgb, (11.27-16.99) 9.30 g/dL L 04/08/25 Rho(D) Type Rh positive 04/06/25 Plt Count, (157-399) 307 10^3/cmm 04/08/25 Hep Bs Antigen, (Nonreactive) Non-reactive 09/29/24 Hepatitis C Antibody, (Nonreactive) Non-reactive 09/29/24 Rubella IgG Antibody, (0.0-10.0) 83.1 IU/mL H 09/29/24 RPR, (Nonreactive) Nonreactive 09/29/24 HIV 1&2 Ab & HIV 1 Ag, (Non-Reactiv) Non-reactive 09/29/24 TSH, (0.27-4.20) 3.46 uIU/mL 09/29/24 Glucose 1 Hr 50 gm, (85-140) 160 mg/dL H 02/02/25 Gest Glucose Tolerance mg/dL 02/09/25 Uric Acid, (2.4-5.7) 6.1 mg/dL H 04/06/25 Ser , Semi-Qnt 3651.00 mIU/mL 08/22/24 HCG, Qual, (Negative) Positive H 08/22/24 Urine Opiates Screen, (Negative) Negative ng/mL 04/06/25 Ur Barbiturates Screen, (Negative) Negative ng/mL 04/06/25 Ur Phencyclidine Scrn, (Negative) Negative ng/mL 04/06/25 Ur Amphetamines Screen, (Negative) Negative ng/mL 04/06/25 U Benzodiazepines Scrn, (Negative) Negative ng/mL 04/06/25 Urine Cocaine Screen, (Negative) Negative ng/mL 04/06/25 U Marijuana (THC) Screen, (Negative) Negative ng/mL 04/06/25 Micro Urine Specimen 04/06/25 Pap Smear Interpret See note 12/14/23 Discharge Plan Discharge Patient Disposition: Home Condition: Stable Prescriptions: New nifedipine [Procardia XL] 30 mg tablet extended release 24hr 30 mg PO DAILY Qty: 30 1RF ferrous gluconate 324 mg (38 mg iron) tablet 324 mg PO DAILY Qty: 30 6RF Continued [id number] 1 mg Tablet 1 tab PO DAILY Discharge Order = DC NOW: Discharge Order (Routine); Ordered 04/09/25 Ordered By: Inder King Discharge Diet: Usual diet Discharge Activity: Increase activity as tolerated Patient Instructions: Magnesium Sulfate/Dextrose Premix (By injection), Depression (DC), Bleeding (DC), Preeclampsia and Eclampsia After Delivery (GEN), Hemorrhage (DC), OB Discharge Report, OB Food/Drug Interaction Guide, OB Care at Home, Opioid Safety, OB Home Care, OB Vaginal Deliveries - [facility], Patient Portal & Marsha Instructions Activity Restrictions/Additional Instructions: Please call 's office Thursday morning for a 1 week Blood Pressure check and make a 4 week appointment Discharge Attestations [employer] Time Spent in Discharge Care*: less than 30 min Coding Level of Care Code Acute Code for Chg Fwd Diagnoses Status post vaginal delivery Preeclampsia O14.90 Anemia D64.9
[2025-04-10 14:19] LABS: High Risk PP Hemorrhage BBK Notified
== END 2025-04-09 13:30 | disposition home or self-care (01) | DRG 807 ==
PROVIDERS: Obstetrics & Gynecology; Admitting Provider Obstetrics & Gynecology; Visit Provider Obstetrics & Gynecology
DX: O14.94 Unspecified pre-eclampsia, complicating childbirth (principal); Z37.0 Single live birth; Z3A.37 37 weeks gestation of pregnancy; O99.02 Anemia complicating childbirth; O99.344 Other mental disorders complicating childbirth; O70.1 Second degree perineal laceration during delivery; F41.9 Anxiety disorder, unspecified; F32.A Depression, unspecified; F43.10 Post-traumatic stress disorder, unspecified; Z87.891 Personal history of nicotine dependence; O75.89 Other specified complications of labor and delivery; G25.81 Restless legs syndrome
CPT/HCPCS: 12345; 36415; 51702; 59025; 59409; 80053; 80306; 81001; 82570; 84156; 84550; 85025; 85027; 86850; 86900; 87086; 96374; 99211; J1171; J2405; J2590; J2795; J3010; J3475; J7121; J9999

== ENCOUNTER → 2025-04-27 13:49 | Outpatient (BNVA) | payer MEDICAID, SELFPAY | PROVIDERS: Visit Provider Nurse Practitioner Women's Health | DX: Z30.46 Encounter for surveillance of implantable subdermal contraceptive (principal) | CPT/HCPCS: 81025 ==